=== PATIENT | female | born 1980 | race Caucasian/White ===

== ENCOUNTER 2016-10-26 09:25 | Inpatient (IN) | payer OTHER ==
--- NOTE | 2016-10-26 09:59 | ER Document Report ---
ED General - General Chief Complaint: High Blood Pressure Stated Complaint: High blood sugar Time seen by provider: 09:56 Mode of Arrival: Ambulatory Information source: Patient Notes: 36-year-old female reports he ran out of insulin 2 days ago and doesn't have money for more. He also reports a one-week history of intermittent fever chills with temperatures high as 102 yesterday. She reports nausea epigastric pain and intermittent vomiting for 2 days. She reports acid reflux symptoms today. He also has diffuse headache today which she says is typical for what she gets with DKA. Physical Exam: General: Alert, appears well. HEENT: Normocephalic. Atraumatic. PERRLA. Extraocular movements intact. Oropharynx clear. Panic membranes and canals clear no sinus tenderness to palpation Neck: Supple. Non-tender. No JVD no nuchal rigidity Respiratory: No respiratory distress. Clear and equal breath sounds bilaterally. Cardiovascular: Regular rate and rhythm. Abdominal: Normal Inspection. Soft, non-tender. No distension. Normal Bowel Sounds. Back: Non-tender. No deformity or step off. Extremities: Moves all four extremities. Splint in place to right upper extremity. He has brisk cap refill good range of motion all fingers. Elbow and shoulder are nontender. Other tremors walk 2 + pulses. She has scattered areas of eschar consistent with recent infections Neurological: Answers questions appropriately mentation clear Psychological: Normal affect. Normal Mood. Skin: Warm. Dry. Normal color. TRAVEL OUTSIDE OF THE [place] IN LAST 30 DAYS: No - Related Data Allergies/Adverse Reactions: levofloxacin [From Levaquin] Allergy (Verified 10/26/16 09:37) Past Medical History - Social History Smoking Status: Former Smoker Chew tobacco use (# tins/day): No Frequency of alcohol use: None Drug Abuse: None Family History: DM, Hypertension Patient has suicidal ideation: No Patient has homicidal ideation: No Endocrine Medical History: Reports: Hx Diabetes Mellitus Type 1 Renal/ Medical History: Denies: Hx Peritoneal Dialysis - Immunizations Hx Diphtheria, Pertussis, Tetanus Vaccination: Yes Review of Systems - Review of Systems Constitutional: See HPI EENT: denies: Ear pain, Throat pain Cardiovascular: denies: Edema Respiratory: Cough Gastrointestinal: denies: Abdominal pain Genitourinary: denies: Burning, Dysuria Musculoskeletal: denies: Back pain Hematologic/Lymphatic: denies: Swollen glands Neurological/Psychological: denies: Weakness, Numbness Physical Exam - Vital signs Vitals: Temp Pulse Resp BP 97.5 F 79 22 H 123/74 10/26/16 09:33 10/26/16 09:33 10/26/16 09:33 10/26/16 09:33 Course - Re-evaluation Re-evalutation: 10/26/16 12:07 Patient has laboratory findings consistent with DKA and has been started on IV insulin and IV fluids. Dr. Neil accepts patient for the hospitalist service. Patient reports fever at home but has no white count or left shift now - Vital Signs Vital signs: Temp Pulse Resp BP Pulse Ox 97.5 F 80 18 123/74 100 10/26/16 09:36 10/26/16 09:36 10/26/16 10:00 10/26/16 09:36 10/26/16 09:36 - Laboratory Result Diagrams: 10/26/16 10:05 10/26/16 10:05 Laboratory results interpreted by me: 10/26/16 10/26/16 10/26/16 10:05 10:05 10:05 MCHC 31.5 L Carbonic Acid ABG pH ABG pCO2 ABG HCO3 ABG Total CO2 Sodium 128.3 L Chloride 91 L Carbon Dioxide 14 L Anion Gap 23 H BUN 24 H Glucose 674 H* POC Glucose Alkaline Phosphatase 130 H Urine Glucose (UA) >=500 H Urine Ketones 80 H 10/26/16 10/26/16 11:04 11:49 MCHC Carbonic Acid 0.95 L ABG pH 7.27 L ABG pCO2 31.5 L ABG HCO3 14.0 L ABG Total CO2 14.9 L Sodium Chloride Carbon Dioxide Anion Gap BUN Glucose POC Glucose > 550 H* Alkaline Phosphatase Urine Glucose (UA) Urine Ketones - Diagnostic Test Radiology reviewed: Image reviewed, Reports reviewed Discharge - Discharge Clinical Impression: Diabetic ketoacidosis Qualifiers: Diabetes mellitus type: type 1 Diabetes mellitus complication detail: without coma Qualified Code(s): E10.10 - Type 1 diabetes mellitus with ketoacidosis without coma Condition: Serious Disposition: ADMITTED INPATIENT Admitting Provider: Hospitalist Unit Admitted: [facility]
[2016-10-26] MEDS: NORMAL SALINE 1000 ML 1,000 ML IV PRN ×3 (10:15→19:17)
[2016-10-26 10:40] LABS: APPEARANCE,URINE CLEAR; BILIRUBIN,URINE NEGATIVE (NEGATIVE); GLUCOSE, URINE >=500 mg/dL (NEGATIVE); KETONES,URINE 80 mg/dL (NEGATIVE); LEUKOCYTE ESTERASE,URINE NEGATIVE (NEGATIVE); NITRITE,URINE NEGATIVE (NEGATIVE); PROTEIN,URINE NEGATIVE (NEGATIVE); URINE SPECIFIC GRAVITY 1.026; UROBILINOGEN,URINE NEGATIVE mg/dL (<2.0)
[2016-10-26 10:42] LABS: ABSOLUTE BASOPHILS # (AUTO) 0.1 10^3/uL (0.0-0.2); ABSOLUTE EOSINOPHILS # (AUTO) 0.3 10^3/uL (0.0-0.6); ABSOLUTE LYMPHOCYTES (AUTO) 2.1 10^3/uL (0.5-4.7); ABSOLUTE MONOCYTES (AUTO) 0.2 10^3/uL (0.1-1.4); ABSOLUTE NEUT (AUTO) 3.3 10^3/uL (1.7-8.2); BASOPHILS % (AUTO) 1.5 % (0-2); EOSINOPHILS % (AUTO) 4.9 % (0-6); HEMATOCRIT 39.6 % (36.0-47.0); HEMOGLOBIN 12.5 g/dL (12.0-15.5); HGB HCT DIFFERENCE -2.1; LYMPHOCYTES % (AUTO) 34.8 % (13-45); MEAN CORPUSCULAR HGB CONC 31.5 g/dL (32.0-36.0); MEAN CORPUSCULAR VOLUME 89 fl (80-97); MONOCYTES % (AUTO) 4.1 % (3-13); RED BLOOD COUNT 4.46 10^6/uL (3.72-5.28); RED CELL DISTRIBUTION WIDTH 13.6 % (11.5-14.0); SEGMENTED NEUTROPHILS % (AUTO) 54.7 % (42-78); WHITE BLOOD COUNT 6.1 10^3/uL (4.0-10.5)
[2016-10-26] MEDS ORDERED: INSULIN REG, HUMAN 100 UNIT/ML 3 ML VIAL (PYX) IV ONE ×2 (10:57→11:37)
[2016-10-26 11:11] LABS: ALANINE AMINOTRANSFERASE 49 U/L (9-52); ALBUMIN 4.2 g/dL (3.5-5.0); ALKALINE PHOSPHATASE 130 U/L (38-126); ASPARTATE AMINO TRANSFERASE 20 U/L (14-36); BILIRUBIN,TOTAL 0.6 mg/dL (0.2-1.3); BLOOD UREA NITROGEN 24 mg/dL (7-20); CALCIUM 9.4 mg/dL (8.4-10.2); CARBON DIOXIDE 14 mmol/L (22-30); CHLORIDE 91 mmol/L (98-107); CREATININE RESULT 0.86 mg/dL (0.52-1.25); POTASSIUM 4.7 mmol/L (3.6-5.0); SODIUM 128.3 mmol/L (137-145); TOTAL PROTEIN 7.8 g/dL (6.3-8.2)
[2016-10-26 11:25] LABS: ANION GAP 23 (5-19); GLUCOSE 674 mg/dL (75-110)
[2016-10-26 11:30] LABS: ARTERIAL BLOOD BASE EXCESS -11.8 mmol/L; ARTERIAL BLOOD O2 SATURATION 96.7 % (94-98)
[2016-10-26] MEDS ORDERED: ONDANSETRON HCL INJ/PF 4 MG/2 ML SDV IV ONE (12:15)
[2016-10-26] MEDS ORDERED: ACETAMINOPHEN 325 MG TABLET PO PRN (12:38)
[2016-10-26] MEDS ORDERED: ONDANSETRON HCL INJ/PF 4 MG/2 ML SDV IV PRN (12:38)
[2016-10-26] MEDS ORDERED: NORMAL SALINE 100 ML with INSULIN REGULAR, HUMAN 100 UNIT IV PRN ×2 (12:42)
[2016-10-26] MEDS ORDERED: DEXTROSE 50%-WATER 25 GM/50 ML DISP.SYRIN IV PRN ×4 (12:42→20:19)
[2016-10-26] MEDS ORDERED: GLUCAGON,HUMAN RECOMB 1 MG INJ IM PRN ×2 (12:42→20:19)
[2016-10-26] MEDS ORDERED: DEXTROSE 40% GEL 15 GM TUBE PO PRN ×4 (12:42→20:19)
[2016-10-26] MEDS ORDERED: CYCLOBENZAPRINE HCL 10 MG TABLET PO PRN (12:43)
--- NOTE | 2016-10-26 13:38 | PDOC H&P ---
History of Present Illness Admission Date/PCP: 10/26/2016. No primary care doctor Patient complains of: Does not taken my insulin for the last 3 days. History of Present Illness: NEMESIO ELIAS is a 36 year old female who has a long history of diabetes mellitus type I who presents with nausea vomiting and elevated blood sugars. The patient reports that she has had some crampy abdominal pain along with some substernal chest pain associated with vomiting. Patient's children had a gastroenteritis. She also reports having some low-grade fevers and chills. She also is had some diarrhea with this. She presented her blood sugars were greater than 500 was found to be in DKA. Patient reports she's been unable to follow her insulin has been without insulin for the last 2 or 3 days. Patient has a history of IV drug abuse reports she's been clean for the last 3 months. She denies any dysuria. She denies any cough or sputum. She does have chest pain that occurred after vomiting. She currently is chest pain-free. Past Medical History Cardiac Medical History: Reports: None Pulmonary Medical History: Reports: None EENT Medical History: Reports: None Neurological Medical History: Reports: None Endocrine Medical History: Reports: Diabetes Mellitus Type 1 Renal/ Medical History: Reports: None Malignancy Medical History: Reports: None GI Medical History: Reports: Gastroesophageal Reflux Disease Musculoskeltal Medical History: Reports: None Psychiatric Medical History: Reports: Bipolar Disorder Traumatic Medical History: Reports: Other - Right hand fracture currently in a cast. Hematology: Reports: None Infectious Medical History: Reports: None Past Surgical History Past Surgical History: Reports: Section, Cholecystectomy, Orthopedic Surgery - right wrist Social History Information Source: Patient Lives with: Family Smoking Status: Former Smoker Frequency of Alcohol Use: None Hx Recreational Drug Use: Yes Drugs: Heroin - None for 3 months. Hx Prescription Drug Abuse: No - Advance Directive Resuscitation Status: Full Code Family History Family History: DM, Hypertension Family History: Mother's in her 50s. Her health history is unknown. Father 61 alive and healthy. Parental Family History Reviewed: Yes Children Family History Reviewed: No Sibling(s) Family History Reviewed.: No Medication/Allergy Allergies/Adverse Reactions: levofloxacin [From Levaquin] Allergy (Verified 10/26/16 09:37) Review of Systems Constitutional: PRESENT: chills, fever(s) Eyes: ABSENT: visual disturbances Ears: ABSENT: hearing changes Cardiovascular: PRESENT: chest pain - This occurred after vomiting. Substernal and does not radiate. Respiratory: ABSENT: cough, hemoptysis Gastrointestinal: PRESENT: diarrhea, heartburn, nausea, vomiting Genitourinary: ABSENT: dysuria, hematuria Musculoskeletal: PRESENT: other - Left neck pain Integumentary: ABSENT: rash, wounds Neurological: ABSENT: abnormal gait, abnormal speech, confusion, dizziness, focal weakness, syncope Psychiatric: PRESENT: other - Has a history of bipolar disorder currently under control.. ABSENT: anxiety, depression, homidical ideation, suicidal ideation Endocrine: PRESENT: polydipsia, polyuria Hematologic/Lymphatic: ABSENT: easy bleeding, easy bruising Physical Exam Vital Signs: Temp Pulse Resp BP Pulse Ox 97.5 F 80 18 123/74 100 10/26/16 09:36 10/26/16 09:36 10/26/16 10:00 10/26/16 09:36 10/26/16 09:36 Intake & Output 10/25/16 10/26/16 10/27/16 06:59 06:59 06:59 Weight 79.9 kg General appearance: PRESENT: no acute distress, well-developed, well-nourished Eye exam: PRESENT: conjunctiva pink, EOMI, PERRLA. ABSENT: scleral icterus Ear exam: PRESENT: normal external ear exam Mouth exam: PRESENT: moist, tongue midline Neck exam: ABSENT: carotid bruit, JVD, lymphadenopathy, thyromegaly Respiratory exam: PRESENT: clear to auscultation tiffanie. ABSENT: rales, rhonchi, wheezes Cardiovascular exam: PRESENT: RRR. ABSENT: diastolic murmur, rubs, systolic murmur Pulses: PRESENT: normal dorsalis pedis pul GI/Abdominal exam: PRESENT: normal bowel sounds, soft. ABSENT: distended, guarding, mass, organolmegaly, rebound, tenderness Rectal exam: PRESENT: deferred Extremities exam: PRESENT: full ROM, other - Right forearm is in a cast. ABSENT : calf tenderness, clubbing, pedal edema Neurological exam: PRESENT: alert, awake, oriented to person, oriented to place , oriented to time, oriented to situation, CN II-XII grossly intact. ABSENT: motor sensory deficit Psychiatric exam: PRESENT: appropriate affect Skin exam: PRESENT: other - Multiple old needle tracks from history of IV drug abuse Results Laboratory Results: 10/26/16 10:05 10/26/16 10:05 10/26/16 10/26/16 10/26/16 10:05 10:05 10:05 WBC 6.1 RBC 4.46 Hgb 12.5 Hct 39.6 MCV 89 MCH 28.0 MCHC 31.5 L RDW 13.6 Plt Count 299 Seg Neutrophils % 54.7 Lymphocytes % 34.8 Monocytes % 4.1 Eosinophils % 4.9 Basophils % 1.5 Absolute Neutrophils 3.3 Absolute Lymphocytes 2.1 Absolute Monocytes 0.2 Absolute Eosinophils 0.3 Absolute Basophils 0.1 Carbonic Acid HCO3/H2CO3 Ratio ABG pH ABG pCO2 ABG pO2 ABG HCO3 ABG O2 Saturation ABG Base Excess FiO2 Sodium 128.3 L Potassium 4.7 Chloride 91 L Carbon Dioxide 14 L Anion Gap 23 H BUN 24 H Creatinine 0.86 Est GFR ( Amer) > 60 Est GFR (Non-Af Amer) > 60 Glucose 674 H* Calcium 9.4 Total Bilirubin 0.6 AST 20 ALT 49 Alkaline Phosphatase 130 H Total Protein 7.8 Albumin 4.2 Urine Color STRAW Urine Appearance CLEAR Urine pH 5.0 Ur Specific [place] 1.026 Urine Protein NEGATIVE Urine Glucose (UA) >=500 H Urine Ketones 80 H Urine Blood NEGATIVE Urine Nitrite NEGATIVE Ur Leukocyte Esterase NEGATIVE Urine WBC (Auto) 1 10/26/16 11:04 WBC RBC Hgb Hct MCV MCH MCHC RDW Plt Count Seg Neutrophils % Lymphocytes % Monocytes % Eosinophils % Basophils % Absolute Neutrophils Absolute Lymphocytes Absolute Monocytes Absolute Eosinophils Absolute Basophils Carbonic Acid 0.95 L HCO3/H2CO3 Ratio 14:1 ABG pH 7.27 L ABG pCO2 31.5 L ABG pO2 97.9 ABG HCO3 14.0 L ABG O2 Saturation 96.7 ABG Base Excess -11.8 FiO2 ROOM AIR Sodium Potassium Chloride Carbon Dioxide Anion Gap BUN Creatinine Est GFR ( Amer) Est GFR (Non-Af Amer) Glucose Calcium Total Bilirubin AST ALT Alkaline Phosphatase Total Protein Albumin Urine Color Urine Appearance Urine pH Ur Specific [place] Urine Protein Urine Glucose (UA) Urine Ketones Urine Blood Urine Nitrite Ur Leukocyte Esterase Urine WBC (Auto) Impressions: Chest X-Ray 10/26/16 09:55 IMPRESSION: NO ACUTE RADIOGRAPHIC FINDING IN THE CHEST. Assessment & Plan - Diagnosis (1) DKA (diabetic ketoacidoses) Qualifiers: Diabetes mellitus type: type 1 Diabetes mellitus complication detail: without coma Qualified Code(s): E10.10 - Type 1 diabetes mellitus with ketoacidosis without coma Is this a current diagnosis for this admission?: YesPlan: The patient has what appears to be a gastroenteritis along with her inability to pay for her insulin which is caused her to have DKA. We will give IV fluids as well as IV insulin. Will convert back over 2 7030 when she is corrected. She was recently using 70/30 at 30 units daily. We'll start her on 15 units twice a day once her DKA resolved. Patient does not have any evidence for an acute bacterial infection. (2) Bipolar 1 disorder, mixed Is this a current diagnosis for this admission?: YesPlan: Patiently is currently controlled without medications. (3) IV drug abuse Is this a current diagnosis for this admission?: YesPlan: Patient reports that she's been off of IV drugs since getting out of senior care in July. We will check an HIV as well as RPR her today. Check urine drug screen. - Time Time Spent: 50 to 70 Minutes - Inpatient Certification Medical Necessity: Need For IV Fluids
[2016-10-26 14:05] LABS: URINE BARBITURATES SCREEN NEGATIVE; URINE METHADONE SCREEN NEGATIVE; URINE PHENCYCLIDINE SCREEN NEGATIVE
[2016-10-26 14:51] LABS: ANION GAP 17 (5-19); BLOOD UREA NITROGEN 21 mg/dL (7-20); CALCIUM 9.1 mg/dL (8.4-10.2); CARBON DIOXIDE 18 mmol/L (22-30); CHLORIDE 104 mmol/L (98-107); CREATININE RESULT 0.68 mg/dL (0.52-1.25); GLUCOSE 251 mg/dL (75-110); POTASSIUM 4.3 mmol/L (3.6-5.0); SODIUM 139.3 mmol/L (137-145)
[2016-10-26] MEDS ORDERED: INFLUENZA ADLT QUAD (36MOS+) 2016-17 VAC 0.5 ML SYR IM PRN (15:20)
[2016-10-26 18:51] LABS: ANION GAP 10 (5-19); BLOOD UREA NITROGEN 19 mg/dL (7-20); CALCIUM 8.7 mg/dL (8.4-10.2); CARBON DIOXIDE 24 mmol/L (22-30); CHLORIDE 106 mmol/L (98-107); CREATININE RESULT 1.05 mg/dL (0.52-1.25); GLUCOSE 191 mg/dL (75-110); POTASSIUM 4.1 mmol/L (3.6-5.0); SODIUM 139.6 mmol/L (137-145)
[2016-10-26] MEDS: HUM INSULIN NPH/REG INSULIN HM 100 UNIT/1 ML 3 ML SUBCUT SCH (19:17)
[2016-10-26] MEDS ORDERED: INSULIN LISPRO 100 UNIT/ML 3 ML VIAL SUBCUT PRN (20:19)
[2016-10-26] MEDS: FAMOTIDINE 20 MG TABLET PO SCH (21:19)
[2016-10-27] MEDS: NORMAL SALINE 1000 ML 1,000 ML IV PRN ×2 (00:57→06:48)
[2016-10-27 05:44] LABS: HEMATOCRIT 34.2 % (36.0-47.0); HGB HCT DIFFERENCE -1.2; MEAN CORPUSCULAR HEMOGLOBIN 27.6 pg (27.0-33.4); MEAN CORPUSCULAR HGB CONC 32.2 g/dL (32.0-36.0); RED BLOOD COUNT 3.99 10^6/uL (3.72-5.28); RED CELL DISTRIBUTION WIDTH 13.4 % (11.5-14.0)
[2016-10-27 05:48] LABS: MEAN CORPUSCULAR VOLUME 86 fl (80-97)
[2016-10-27 06:01] LABS: ANION GAP 13 (5-19); BLOOD UREA NITROGEN 16 mg/dL (7-20); CALCIUM 8.8 mg/dL (8.4-10.2); CARBON DIOXIDE 18 mmol/L (22-30); CHLORIDE 112 mmol/L (98-107); CREATININE RESULT 0.64 mg/dL (0.52-1.25); GLUCOSE 107 mg/dL (75-110); POTASSIUM 4.1 mmol/L (3.6-5.0); SODIUM 142.7 mmol/L (137-145)
[2016-10-27] MEDS: HUM INSULIN NPH/REG INSULIN HM 100 UNIT/1 ML 3 ML SUBCUT SCH (08:00)
[2016-10-27] MEDS: FAMOTIDINE 20 MG TABLET PO SCH (09:16)
--- NOTE | 2016-10-27 11:17 | PDOC DISCHARGE SUMMARY ---
General - Admit/Disc Date/PCP Admission Date/Primary Care Provider: 10/26/16 12:38 Discharge Date: 10/27/16 - Discharge Diagnosis (1) DKA (diabetic ketoacidoses) Is this a current diagnosis for this admission?: Yes (2) Bipolar 1 disorder, mixed Is this a current diagnosis for this admission?: Yes (3) IV drug abuse Is this a current diagnosis for this admission?: Yes - Additional Information Resuscitation Status: Full Code Discharge Diet: Diabetic Discharge Activity: Activity As Tolerated Home Medications: Cyclobenzaprine HCl [Flexeril 10 mg Tablet] 10 mg PO Q8HP PRN #30 tablet Hum Insulin NPH/Reg Insulin Hm [Insulin 70-30 (NPH/Reg) 100 unit/mL] 15 unit SUBCUT Q12@0800,1999 #1 pkg 10/27/16 History of Present Illness History of Present Illness: NEMESIO ELIAS is a 36 year old female who has a long history of diabetes mellitus type I who presents with nausea vomiting and elevated blood sugars. The patient reports that she has had some crampy abdominal pain along with some substernal chest pain associated with vomiting. Patient's children had a gastroenteritis. She also reports having some low-grade fevers and chills. She also is had some diarrhea with this. She presented her blood sugars were greater than 500 was found to be in DKA. Patient reports she's been unable to follow her insulin has been without insulin for the last 2 or 3 days. Patient has a history of IV drug abuse reports she's been clean for the last 3 months. She denies any dysuria. She denies any cough or sputum. She does have chest pain that occurred after vomiting. She currently is chest pain-free. Hospital Course Hospital Course: Patient presented with DKA most likely secondary to viral gastroenteritis. Patient was started on IV fluids and IV insulin drip. Patient had quick resolution of her DKA and she was started back on 7030. Patient previously been taking 30 units once daily and we switched her to 15 units twice a day. The patient was tolerating by mouth well and had no evidence for any type of bacterial infection. The patient is discharged home and [facility]. Physical Exam Vital Signs: Temp Pulse Resp BP Pulse Ox 97.3 F 64 16 102/58 L 98 10/27/16 07:22 10/27/16 07:22 10/27/16 07:22 10/27/16 07:22 10/27/16 07:22 Intake & Output 10/26/16 10/27/16 10/28/16 06:59 06:59 06:59 Intake Total 2970 Output Total 800 Balance 2170 Weight 81.4 kg General appearance: PRESENT: no acute distress Eye exam: PRESENT: conjunctiva pink Mouth exam: PRESENT: moist, tongue midline Neck exam: ABSENT: JVD Respiratory exam: PRESENT: clear to auscultation tiffanie. ABSENT: rales, rhonchi, wheezes Cardiovascular exam: PRESENT: RRR. ABSENT: diastolic murmur, rubs, systolic murmur GI/Abdominal exam: PRESENT: normal bowel sounds, soft. ABSENT: distended, guarding, mass, organolmegaly, rebound, tenderness Extremities exam: ABSENT: calf tenderness, clubbing, pedal edema Neurological exam: PRESENT: alert, awake, oriented to person, oriented to place , oriented to time, oriented to situation Results Laboratory Results: 10/27/16 04:09 10/27/16 04:09 10/26/16 10/26/16 10/27/16 14:06 18:17 04:09 WBC 5.0 RBC 3.99 Hgb 11.0 L Hct 34.2 L MCV 86 MCH 27.6 MCHC 32.2 RDW 13.4 Plt Count 223 Sodium 139.3 139.6 Potassium 4.3 4.1 Chloride 104 106 Carbon Dioxide 18 L 24 Anion Gap 17 10 BUN 21 H 19 Creatinine 0.68 1.05 Est GFR ( Amer) > 60 > 60 Est GFR (Non-Af Amer) > 60 > 60 Glucose 251 H 191 H Calcium 9.1 8.7 10/27/16 04:09 WBC RBC Hgb Hct MCV MCH MCHC RDW Plt Count Sodium 142.7 Potassium 4.1 Chloride 112 H Carbon Dioxide 18 L Anion Gap 13 BUN 16 Creatinine 0.64 Est GFR ( Amer) > 60 Est GFR (Non-Af Amer) > 60 Glucose 107 Calcium 8.8 10/26/16 15:57 Nasophary (Mrsa Only) MRSA Surveillance Culture - Final NO MRSA RECOVERED Impressions: Chest X-Ray 10/26/16 09:55 IMPRESSION: NO ACUTE RADIOGRAPHIC FINDING IN THE CHEST. Qualifiers PATEINT BEING DISCHARGED WITH ANY OF THE FOLLOWING DIAGNOSIS?: No Plan Discharge Plan: Patient is discharged home. She [facility]. Time Spent: Less than 30 Minutes
[2016-10-27] MEDS ORDERED: INSULIN GLARGINE,HUM.REC.ANLOG 1,000 UNIT/10 ML UNIT SUBCUT ONE (13:30)
[2016-10-27 13:34] VITALS: BP 106/54
[2016-10-27] MEDS ORDERED: INSULIN GLARGINE,HUM.REC.ANLOG 300 UNIT/3 ML INSULN.PEN SUBCUT ONE ×2 (14:30)
[2016-10-28] MEDS ORDERED: INSULIN GLARGINE,HUM.REC.ANLOG 300 UNIT/3 ML INSULN.PEN SUBCUT SCH (10:00)
== END 2016-10-27 15:19 | disposition home or self-care (01) | DRG 639 ==
LOC: ER 09:25 → EH 12:38 → UNDOADMIN 12:55 → 3N 14:56
PROVIDERS: ADMIT Family Medicine; ATTEND Family Medicine
PROC: 3E0234Z Introduction of Serum, Toxoid and Vaccine into Muscle, Percutaneous Approach (ICD-10-PCS; principal; 2016-10-27)
DX: E13.10 Other specified diabetes mellitus with ketoacidosis without coma (principal); A08.4 Viral intestinal infection, unspecified; K21.9 Gastro-esophageal reflux disease without esophagitis; F31.9 Bipolar disorder, unspecified; Z59.8 Other problems related to housing and economic circumstances; Z79.4 Long term (current) use of insulin; Z23 Encounter for immunization
CPT/HCPCS: 36415; 36600; 71010; 80048; 80053; 80307; 81001; 81025; 82803; 82962; 85025; 85027; 86592; 86701; 87086; 90686; 96360; 96361; 99284; J1815; J2405; J7030

== ENCOUNTER 2016-11-12 22:35 | Emergency (ER) | payer OTHER ==
--- NOTE | 2016-11-12 23:03 | ER Document Report ---
ED Medical Screen (RME) - General Chief Complaint: Shoulder Pain Stated Complaint: SHOULDER INJURY Time seen by provider: 23:02 Mode of Arrival: Ambulatory Information source: Patient Notes: 36-year-old female presents to ED for left neck shoulder and arm pain since yesterday. She states she was moving furniture when her pain started in her neck right radiating across her shoulder and down her arm to her hand. Asthma superior descending the 2015. History of diabetes insulin-dependent. Patient states she's already had Tylenol and aspirin today and does not want Tylenol or Motrin in the ER. I have greeted and performed a rapid initial assessment of this patient. A comprehensive ED assessment and evaluation of the patient, analysis of test results and completion of medical decision making process will be conducted by an additional ED providers. TRAVEL OUTSIDE OF THE [place] IN LAST 30 DAYS: No - Related Data Allergies/Adverse Reactions: levofloxacin [From Levaquin] Allergy (Verified 10/26/16 09:37) Past Medical History Endocrine Medical History: Reports: Hx Diabetes Mellitus Type 1 Renal/ Medical History: Denies: Hx Peritoneal Dialysis GI Medical History: Reports: Hx Gastroesophageal Reflux Disease Psychiatric Medical History: Reports: Hx Bipolar Disorder, Hx Depression Past Surgical History: Reports: Hx Section, Hx Cholecystectomy, Hx Orthopedic Surgery - right wrist - Immunizations Hx Diphtheria, Pertussis, Tetanus Vaccination: Yes Physical Exam - Vital signs Vitals: Temp Pulse Resp BP Pulse Ox 98.0 F 92 16 135/83 H 98 11/12/16 22:39 11/12/16 22:39 11/12/16 22:39 11/12/16 22:39 11/12/16 22:39 Course - Vital Signs Vital signs: Temp Pulse Resp BP Pulse Ox 98.0 F 92 16 135/83 H 98 11/12/16 22:39 11/12/16 22:39 11/12/16 22:39 11/12/16 22:39 11/12/16 22:39
[2016-11-13] MEDS ORDERED: KETOROLAC TROMETHAMINE 60 MG/2 ML SDV IM ONE (02:32)
[2016-11-13] MEDS ORDERED: CYCLOBENZAPRINE HCL 10 MG TABLET PO ONE (02:32)
--- NOTE | 2016-11-13 02:33 | ER Document Report ---
ED General - General Chief Complaint: Neck Pain < 24hrs old Stated Complaint: SHOULDER INJURY Mode of Arrival: Ambulatory Notes: Patient is a 36-year-old female who presents with complaint of neck and shoulder pain on left side. Patient says she has been the radiates from behind her mastoid process down her trapezius muscle cross into the left shoulder. She says that the areas are becoming sore on when she was lifting and helping move heavy furniture. Throughout the day Tuesday continued and now it hurts for her to turn her head or to shrug her shoulder on the left side. No numbness. No weakness in his left hand. No other complaints at this time. No trauma to the neck. TRAVEL OUTSIDE OF THE [place] IN LAST 30 DAYS: No - Related Data Allergies/Adverse Reactions: levofloxacin [From Levaquin] Allergy (Verified 10/26/16 09:37) Past Medical History - General Information source: Patient - Social History Smoking Status: Never Smoker Chew tobacco use (# tins/day): No Frequency of alcohol use: None Drug Abuse: None Family History: DM, Hypertension Patient has suicidal ideation: No Patient has homicidal ideation: No Endocrine Medical History: Reports: Hx Diabetes Mellitus Type 1 Renal/ Medical History: Denies: Hx Peritoneal Dialysis GI Medical History: Reports: Hx Gastroesophageal Reflux Disease Psychiatric Medical History: Reports: Hx Bipolar Disorder, Hx Depression Past Surgical History: Reports: Hx Section, Hx Cholecystectomy, Hx Orthopedic Surgery - right wrist - Immunizations Hx Diphtheria, Pertussis, Tetanus Vaccination: Yes Hx Pneumococcal Vaccination: 11/10/15 Review of Systems - Review of Systems Notes: My Normal Review Basic REVIEW OF SYSTEMS: CONSTITUTIONAL : Denies fever, chills, or sweats. Denies recent illness. MUSCULOSKELETAL: Pain over left trapezius muscle. SKIN: Denies rash or skin lesions. HEMATOLOGIC : Denies easy bruising or bleeding. NEUROLOGICAL: Denies altered mental status or loss of consciousness. Denies headache. Denies weakness or paralysis or loss of use of either side. Denies problems with gait or speech. Denies sensory or motor loss. ALL OTHER SYSTEMS REVIEWED AND NEGATIVE. Physical Exam - Vital signs Vitals: Temp Pulse Resp BP Pulse Ox 98.0 F 92 16 135/83 H 98 11/12/16 22:39 11/12/16 22:39 11/12/16 22:39 11/12/16 22:39 11/12/16 22:39 - Notes Notes: General Appearance: Well nourished, alert, cooperative, no acute distress, moderate obvious discomfort. Vitals: reviewed, See vital signs table. Head: no swelling or tenderness to the head Eyes: PERRL, EOMI, Conjuctiva clear Mouth: No decreasd moisture Throat: No tonsillar inflammation, No airway obstruction, No lymphadenopathy Neck: Supple, no midline neck tenderness. Patient has some stiffness to the trapezius muscle and the left side. No significant tenderness to palpation. Pain is worse when the patient goes to flex her her head down. Extremities: strength 5/5 in all extremities, good pulses in all extremities, no swelling or tenderness in the extremities, no edema. Normal movement of fingers of the left hand. Skin: warm, dry, appropriate color, no rash Neuro: speech clear, oriented x 3, normal affect, responds appropriately to questions. Distal sensation intact. Course - Vital Signs Vital signs: Temp Pulse Resp BP Pulse Ox 98.0 F 92 16 135/83 H 98 11/12/16 22:39 11/12/16 22:39 11/12/16 22:39 11/12/16 22:39 11/12/16 22:39 - Transfer of Care Notes: 11/13/16 02:30 Dictation of this chart was performed using voice recognition software; therefore, there may be some unintended grammatical errors. 11/13/16 02:31 Discharge - Discharge Clinical Impression: Trapezius muscle spasm Cervical strain Qualifiers: Encounter type: initial encounter Qualified Code(s): S16.1XXA - Strain of muscle, fascia and tendon at neck level, initial encounter Condition: Good Disposition: HOME, SELF-CARE Additional Instructions: Patient has what appears to be a trapezius muscle spasm. She will be placed on anti-spasmodic medications. She's encouraged follow up with her doctor. She's encouraged return to ER shows worsening pain, hand weakness, or feels unwell. Patient agrees with plan and will be discharged home. Dictation of this chart was performed using voice recognition software; therefore, there may be some unintended grammatical errors. Prescriptions: Metaxalone [Skelaxin 800 mg Tablet] 800 mg PO ASDIR PRN #20 tablet PRN Reason: Forms: Return to Work
[2016-11-13 02:48] VITALS: BP 130/85
== END 2016-11-13 02:48 | disposition home or self-care (01) ==
LOC: ER 22:35
DX: S16.1XXA Strain of muscle, fascia and tendon at neck level, initial encounter (principal); M62.830 Muscle spasm of back; M54.2 Cervicalgia; X50.0XXA Overexertion from strenuous movement or load, initial encounter
CPT/HCPCS: 99283; 96372; 72050; 73030; J1885

== ENCOUNTER 2016-12-05 19:27 | Emergency (ER) | payer OTHER ==
--- NOTE | 2016-12-05 19:48 | ER Document Report ---
ED Medical Screen (RME) - General Stated Complaint: FALL/RIGHT HAND,WRIST PAIN, SWELLING Time seen by provider: 19:46 Mode of Arrival: Ambulatory Information source: Patient Notes: 36-year-old female presents to ED for pain in her right wrist hand and pinky finger. States she fell catching herself with her hand. The wrist is swollen. Last menstrual period 11/25/2016 I have greeted and performed a rapid initial assessment of this patient. A comprehensive ED assessment and evaluation of the patient, analysis of test results and completion of medical decision making process will be conducted by an additional ED providers. TRAVEL OUTSIDE OF THE [place] IN LAST 30 DAYS: No - Related Data Allergies/Adverse Reactions: levofloxacin [From Levaquin] Allergy (Verified 12/05/16 19:45) Past Medical History Endocrine Medical History: Reports: Hx Diabetes Mellitus Type 1 Renal/ Medical History: Denies: Hx Peritoneal Dialysis GI Medical History: Reports: Hx Gastroesophageal Reflux Disease Psychiatric Medical History: Reports: Hx Bipolar Disorder, Hx Depression Past Surgical History: Reports: Hx Section, Hx Cholecystectomy, Hx Orthopedic Surgery - right wrist - Immunizations Hx Diphtheria, Pertussis, Tetanus Vaccination: Yes Physical Exam - Vital signs Vitals: Temp Pulse Resp BP Pulse Ox 97.6 F 71 16 142/85 H 100 12/05/16 19:35 12/05/16 19:35 12/05/16 19:35 12/05/16 19:35 12/05/16 19:35 Course - Vital Signs Vital signs: Temp Pulse Resp BP Pulse Ox 97.6 F 71 16 142/85 H 100 12/05/16 19:35 12/05/16 19:35 12/05/16 19:35 12/05/16 19:35 12/05/16 19:35
[2016-12-05 22:25] VITALS: BP 131/88
--- NOTE | 2016-12-05 22:31 | ER Document Report ---
ED Fall - General Chief Complaint: Fall Stated Complaint: FALL/RIGHT HAND,WRIST PAIN, SWELLING Mode of Arrival: Ambulatory Information source: Patient Notes: 36-year-old female presents to the emergency department complaining of right wrist and hand pain status post mechanical fall. Patient reports she tripped and fell this afternoon from standing landing on the lateral aspect of the right hand and wrist. Patient reports has fractured right fifth metacarpal within the last 2 months and has follow-up appointment with orthopedics tomorrow for that. Reports pain to hand and wrist is worse with movement but denies numbness or tingling. TRAVEL OUTSIDE OF THE [place] IN LAST 30 DAYS: No - HPI Occurred: This afternoon Where: Indoors Context: Tripped, Fell from standing Associated symptoms: None Location of injury/pain: Hand, Wrist Quality of pain: Achy Severity: Moderate Pain Level: 3 - Related data Allergies/Adverse Reactions: levofloxacin [From Levaquin] Allergy (Verified 12/05/16 19:45) Past Medical History - General Information source: Patient - Social History Smoking Status: Former Smoker Chew tobacco use (# tins/day): No Frequency of alcohol use: None Drug Abuse: None Lives with: Family Family History: DM, Hypertension Patient has suicidal ideation: No Patient has homicidal ideation: No Endocrine Medical History: Reports: Hx Diabetes Mellitus Type 1 Renal/ Medical History: Denies: Hx Peritoneal Dialysis GI Medical History: Reports: Hx Gastroesophageal Reflux Disease Psychiatric Medical History: Reports: Hx Bipolar Disorder, Hx Depression Past Surgical History: Reports: Hx Section, Hx Cholecystectomy, Hx Orthopedic Surgery - right wrist - Immunizations Hx Diphtheria, Pertussis, Tetanus Vaccination: Yes Hx Pneumococcal Vaccination: 11/10/15 Review of Systems - Review of Systems Constitutional: No symptoms reported EENT: No symptoms reported Cardiovascular: No symptoms reported Respiratory: No symptoms reported Gastrointestinal: No symptoms reported Genitourinary: No symptoms reported Female Genitourinary: No symptoms reported Musculoskeletal: See HPI Skin: No symptoms reported Hematologic/Lymphatic: No symptoms reported Neurological/Psychological: No symptoms reported -: Yes All other systems reviewed and negative Physical Exam - Vital signs Vitals: Temp Pulse Resp BP Pulse Ox 97.6 F 71 16 142/85 H 100 12/05/16 19:35 12/05/16 19:35 12/05/16 19:35 12/05/16 19:35 12/05/16 19:35 Interpretation: Normal - General General appearance: Appears well, Alert - HEENT Head: Normocephalic, Atraumatic Eyes: Normal Pupils: PERRL - Respiratory Respiratory status: No respiratory distress Chest status: Nontender Breath sounds: Normal Chest palpation: Normal - Cardiovascular Rhythm: Regular Heart sounds: Normal auscultation Murmur: No Pulses: Normal: Radial Normal capillary refill: Yes - Abdominal Inspection: Normal Distension: No distension Bowel sounds: Normal Tenderness: Nontender Organomegaly: No organomegaly - Back Back: Normal, Nontender - Extremities General upper extremity: Normal inspection, Nontender, Normal color, Normal ROM , Normal strength, Normal temperature. No: Tender, Edema General lower extremity: Normal inspection, Nontender, Normal color, Normal ROM , Normal strength, Normal temperature, Normal weight bearing. No: Tender, Edema Shoulder: Normal, Instability Arm: Normal, Nontender, Instability Elbow: Normal, Nontender Forearm: Normal, Nontender Wrist: Tender - Tenderness with palpation and mild localized bruising and swelling to lateral aspect of right wrist and proximal fifth metacarpal area. Full but painful range of motion. Gross motor function intact with no instability or deformity. Neurovascular function intact., Ecchymosis, Limited ROM. No: Deformity, Instability, Navicular tenderness Hand: Tender. No: Instability - Neurological Neuro grossly intact: Yes Cognition: Normal Orientation: AAOx4 [place] Coma Scale Eye Opening: Spontaneous Mary Coma Scale Verbal: Oriented Mary Coma Scale Motor: Obeys Commands [place] Coma Scale Total: 15 Speech: Normal Motor strength normal: LUE, RUE, LLE, RLE Sensory: Normal - Psychological Associated symptoms: Normal affect, Normal mood - Skin Skin Temperature: Warm Skin Moisture: Dry Skin Color: Normal Course - Re-evaluation Re-evalutation: 12/05/16 22:45 Patient hemodynamically stable, in no distress. X-ray shows old fifth metacarpal fracture with no acute osseous injury. Cock-up splint placed and patient agrees with home care, follow-up, and ED return precautions. - Vital Signs Vital signs: Temp Pulse Resp BP Pulse Ox 98.0 F 84 16 131/88 H 98 12/05/16 22:25 12/05/16 22:24 12/05/16 19:35 12/05/16 22:24 12/05/16 22:24 - Diagnostic Test Radiology reviewed: Image reviewed, Reports reviewed Procedures - Immobilization Right Wrist Time completed: 22:45 Pre-Proc Neuro Vasc Exam: Normal Immobilizer type: Cock-up Performed by: RN Post-Proc Neuro Vasc Exam: Normal Alignment checked and good: Yes Discharge - Discharge Clinical Impression: Contusion, wrist Qualifiers: Encounter type: initial encounter Laterality: right Qualified Code(s): S60.211A - Contusion of right wrist, initial encounter Wrist sprain Qualifiers: Encounter type: initial encounter Laterality: right Qualified Code(s): S63.501A - Unspecified sprain of right wrist, initial encounter Condition: Stable Disposition: HOME, SELF-CARE Instructions: Wrist Sprain ([facility]), Contusion ([facility]), Temporary Splint ([facility]), Ice & Elevation ([facility]), Anti-Inflammatory Medication ([facility]) Additional Instructions: Keep your appointment and follow-up with orthopedics tomorrow. Return to the emergency department for any worsening symptoms or concerns. Prescriptions: Naproxen [Naprosyn 375 Mg Tablet] 375 mg PO BIDP PRN #10 tablet PRN Reason: Forms: Elevated Blood Pressure, Return to Work
== END 2016-12-05 22:35 | disposition home or self-care (01) ==
LOC: ER 19:27
DX: S63.501A Unspecified sprain of right wrist, initial encounter (principal); M25.531 Pain in right wrist; M79.641 Pain in right hand; W19.XXXA Unspecified fall, initial encounter; E10.9 Type 1 diabetes mellitus without complications; Z87.81 Personal history of (healed) traumatic fracture; Z98.890 Other specified postprocedural states; Z88.1 Allergy status to other antibiotic agents; Z87.891 Personal history of nicotine dependence
CPT/HCPCS: 99283; 73130; 73110; L3984

== ENCOUNTER → 2016-12-06 | Outpatient (CLI) | payer OTHER ==
[2016-12-06 11:43] LABS: ALANINE AMINOTRANSFERASE 19 U/L (9-52); ALBUMIN 4.6 g/dL (3.5-5.0); ALKALINE PHOSPHATASE 88 U/L (38-126); ANION GAP 12 (5-19); ASPARTATE AMINO TRANSFERASE 16 U/L (14-36); BILIRUBIN,TOTAL 0.5 mg/dL (0.2-1.3); BLOOD UREA NITROGEN 18 mg/dL (7-20); CALCIUM 10.7 mg/dL (8.4-10.2); CARBON DIOXIDE 27 mmol/L (22-30); CHLORIDE 102 mmol/L (98-107); CREATININE RESULT 0.76 mg/dL (0.52-1.25); GLUCOSE 106 mg/dL (75-110); POTASSIUM 4.1 mmol/L (3.6-5.0); SODIUM 141.4 mmol/L (137-145)
[2016-12-07 10:38] LABS: HEPATITIS C VIRUS AB <0.1 s/co ratio (0.0-0.9)
== END ==
LOC: CCC 10:50
DX: E10.9 Type 1 diabetes mellitus without complications (principal)
CPT/HCPCS: 36415; 80053; 83036; 86803; 86804

== ENCOUNTER 2017-03-31 20:11 | Emergency (ER) | payer OTHER ==
--- NOTE | 2017-03-31 21:28 | ER Document Report ---
ED Medical Screen (RME) - General Chief Complaint: Wound Infection Stated Complaint: RIGHT LEG PAIN Time Seen by Provider: 03/31/17 21:25 Notes: 36-year-old female, reports that she shot methamphetamine intravenously into her right lower leg on Tuesday, has had progressive pain, redness, swelling to the area since that time. She is a diabetic, takes insulin. Tetanus reportedly up-to-date. She denies fever, vomiting, or any other symptoms. TRAVEL OUTSIDE OF THE [place] IN LAST 30 DAYS: No - Related Data Allergies/Adverse Reactions: levofloxacin [From Levaquin] Allergy (Verified 12/05/16 19:45) Past Medical History Endocrine Medical History: Reports: Hx Diabetes Mellitus Type 1 Renal/ Medical History: Denies: Hx Peritoneal Dialysis GI Medical History: Reports: Hx Gastroesophageal Reflux Disease Psychiatric Medical History: Reports: Hx Bipolar Disorder, Hx Depression Past Surgical History: Reports: Hx Section, Hx Cholecystectomy, Hx Orthopedic Surgery - right wrist - Immunizations Hx Diphtheria, Pertussis, Tetanus Vaccination: Yes Physical Exam - Vital signs Vitals: Temp Pulse Resp BP Pulse Ox 98.6 F 98 20 132/80 H 100 03/31/17 20:44 03/31/17 20:44 03/31/17 20:44 03/31/17 20:44 03/31/17 20:44 - Extremities General lower extremity: Other - Right upper calf area with mild swelling, no obvious fluctuance or head, area has some erythema and tenderness, no streaking away from the area, normal lower extremity exam otherwise Course - Vital Signs Vital signs: Temp Pulse Resp BP Pulse Ox 98.6 F 98 20 132/80 H 100 03/31/17 20:44 03/31/17 20:44 03/31/17 20:44 03/31/17 20:44 03/31/17 20:44
[2017-03-31 22:05] LABS: ABSOLUTE BASOPHILS # (AUTO) 0.1 10^3/uL (0.0-0.2); ABSOLUTE LYMPHOCYTES (AUTO) 2.8 10^3/uL (0.5-4.7); ABSOLUTE MONOCYTES (AUTO) 0.4 10^3/uL (0.1-1.4); ABSOLUTE NEUT (AUTO) 4.4 10^3/uL (1.7-8.2); MEAN CORPUSCULAR HGB CONC 32.4 g/dL (32.0-36.0); RED BLOOD COUNT 4.68 10^6/uL (3.72-5.28)
[2017-03-31 22:10] LABS: ABSOLUTE EOSINOPHILS # (AUTO) 0.2 10^3/uL (0.0-0.6); BASOPHILS % (AUTO) 1.3 % (0-2); EOSINOPHILS % (AUTO) 2.9 % (0-6); HEMATOCRIT 40.3 % (36.0-47.0); HEMOGLOBIN 13.1 g/dL (12.0-15.5); LYMPHOCYTES % (AUTO) 35.3 % (13-45); MEAN CORPUSCULAR HEMOGLOBIN 27.9 pg (27.0-33.4); MEAN CORPUSCULAR VOLUME 86 fl (80-97); MONOCYTES % (AUTO) 5.5 % (3-13); RED CELL DISTRIBUTION WIDTH 13.8 % (11.5-14.0)
[2017-03-31 22:25] LABS: ANION GAP 17 (5-19); BLOOD UREA NITROGEN 12 mg/dL (7-20); CALCIUM 10.4 mg/dL (8.4-10.2); CARBON DIOXIDE 24 mmol/L (22-30); CHLORIDE 104 mmol/L (98-107); GLUCOSE 76 mg/dL (75-110); POTASSIUM 4.1 mmol/L (3.6-5.0); SODIUM 144.8 mmol/L (137-145)
[2017-03-31] MEDS ORDERED: LIDOCAINE 1% INJ-PF (10 MG/ML) 30 ML SDV INJ ONE (23:14)
--- NOTE | 2017-03-31 23:17 | ER Document Report ---
ED General - General Chief Complaint: Wound Infection Stated Complaint: RIGHT LEG PAIN Time Seen by Provider: 03/31/17 21:25 Mode of Arrival: Ambulatory Information source: Patient Notes: 36-year-old female who injects methamphetamine who presents with complaints of right leg abscess. Patient notes injected last on Tuesday noticed the redness worsened since. Denies any fevers or chills TRAVEL OUTSIDE OF THE [place] IN LAST 30 DAYS: No - HPI Onset: Last week Onset/Duration: Persistent Quality of pain: Achy, Burning Severity: Mild Pain Level: 1 Associated symptoms: Other Exacerbated by: Denies Relieved by: Denies Similar symptoms previously: Yes Recently seen / treated by doctor: Yes - Related Data Allergies/Adverse Reactions: levofloxacin [From Levaquin] Allergy (Verified 12/05/16 19:45) Past Medical History - Social History Smoking Status: Current Every Day Smoker Cigarette use (# per day): Yes Chew tobacco use (# tins/day): No Smoking Education Provided: No Drug Abuse: Methamphetamine Family History: DM, Hypertension Patient has suicidal ideation: No Patient has homicidal ideation: No Endocrine Medical History: Reports: Hx Diabetes Mellitus Type 1 Renal/ Medical History: Denies: Hx Peritoneal Dialysis GI Medical History: Reports: Hx Gastroesophageal Reflux Disease Psychiatric Medical History: Reports: Hx Bipolar Disorder, Hx Depression Past Surgical History: Reports: Hx Section, Hx Cholecystectomy, Hx Orthopedic Surgery - right wrist - Immunizations Hx Diphtheria, Pertussis, Tetanus Vaccination: Yes Hx Pneumococcal Vaccination: 11/10/15 Review of Systems - Review of Systems Notes: REVIEW OF SYSTEMS: CONSTITUTIONAL : Denies fever, chills, or sweats. Denies recent illness. EENT: Denies eye, ear, throat, or mouth pain or symptoms. Denies nasal or sinus congestion or discharge. Denies throat, tongue, or mouth swelling or difficulty swallowing. CARDIOVASCULAR: Denies chest pain. Denies palpitations or racing or irregular heart beat. Denies ankle edema. RESPIRATORY: Denies cough, cold, or chest congestion. Denies shortness of breath, difficulty breathing, or wheezing. GASTROINTESTINAL: Denies abdominal pain or distention. Denies nausea, vomiting , or diarrhea. Denies blood in vomitus, stools, or per rectum. Denies black, tarry stools. Denies constipation. GENITOURINARY: Denies difficulty urinating, painful urination, burning, frequency, blood in urine, or discharge. FEMALE GENITOURINARY: Denies vaginal bleeding, heavy or abnormal periods, irregular periods. Denies vaginal discharge or odor. MUSCULOSKELETAL: Denies back or neck pain or stiffness. Denies joint pain or swelling. SKIN: Right leg redness HEMATOLOGIC : Denies easy bruising or bleeding. LYMPHATIC: Denies swollen, enlarged glands. NEUROLOGICAL: Denies confusion or altered mental status. Denies passing out or loss of consciousness. Denies dizziness or lightheadedness. Denies headache. Denies weakness or paralysis or loss of use of either side. Denies problems with gait or speech. Denies sensory loss, numbness, or tingling. Denies seizures. PSYCHIATRIC: Denies anxiety or stress. Denies depression, suicidal ideation, or homicidal ideation. ALL OTHER SYSTEMS REVIEWED AND NEGATIVE. PHYSICAL EXAMINATION: GENERAL: Well-appearing, well-nourished and in no acute distress. HEAD: Atraumatic, normocephalic. EYES: Pupils equal round and reactive to light, extraocular movements intact, conjunctiva are normal. ENT: Nares patent, oropharynx clear without exudates. Moist mucous membranes. NECK: Normal range of motion, supple without lymphadenopathy LUNGS: Breath sounds clear to auscultation bilaterally and equal. No wheezes rales or rhonchi. HEART: Regular rate and rhythm without murmurs ABDOMEN: Soft, nontender, nondistended abdomen. No guarding, no rebound. No masses appreciated. Female : deferred Musculoskeletal: Normal range of motion, no pitting or edema. No cyanosis. NEUROLOGICAL: Cranial nerves grossly intact. Normal speech, normal gait. Normal sensory, motor exams PSYCH: Normal mood, normal affect. SKIN: Area of fluctuance erythema measuring 3 x 3 cm of the right medial calf anterior Dictation was performed using [employer] voice recognition software Physical Exam - Vital signs Vitals: Temp Pulse Resp BP Pulse Ox 98.6 F 98 20 132/80 H 100 03/31/17 20:44 03/31/17 20:44 03/31/17 20:44 03/31/17 20:44 03/31/17 20:44 Course - Re-evaluation Re-evalutation: 03/31/17 23:17 This is an abscess secondary to methamphetamine injection. Ultrasound was performed area will be I&D antibiotics will be started lab work notes no significant systemic infection 04/01/17 00:22 Area was incised pus was drained patient will be started on antibiotics, I explained my concerns for possible worsening infection Patient states she understands, I have encouraged her to stop using methamphetamines After performing a Medical Screening Examination, I estimate there is LOW risk for OPEN FRACTURE, COMPARTMENT SYNDROME, TENDON RUPTURE, ACUTE NEUROVASCULAR INJURY, or RETAINED FOREIGN BODY, thus I consider the discharge disposition reasonable. Also, there is no evidence or peritonitis, sepsis, or toxicity. I have reevaluated this patient multiple times and no significant life threatening changes are noted. The patient and I have discussed the diagnosis and risks, and we agree with discharging home with close follow-up with the understanding that symptoms and presentations can change. We also discussed returning to the Emergency Department immediately if new or worsening symptoms occur. We have discussed the symptoms which are most concerning (e.g., changing or worsening pain, fever, numbness, weakness, cool or painful digits) that necessitate immediate return. - Vital Signs Vital signs: Temp Pulse Resp BP Pulse Ox 98.6 F 98 20 132/80 H 100 03/31/17 20:44 03/31/17 20:44 03/31/17 20:44 03/31/17 20:44 03/31/17 20:44 - Laboratory Result Diagrams: 03/31/17 21:40 03/31/17 21:40 Laboratory results interpreted by me: 03/31/17 21:40 Calcium 10.4 H - Diagnostic Test Radiology reviewed: Image reviewed, Reports reviewed - Report given to patient Procedures - Incision and Drainage Right Leg Time completed: 00:22 Type: Simple, Single Anesthetic type: 1% Lidocaine mL's of anesthetic: 10 Blade size: 11 I&D procedure: Betadine prep applied, Sterile dressing applied, Other Incision Method: Incision made by scalpel Amount/type of drainage: moderate amount of black and white pus Discharge - Discharge Clinical Impression: Abscess, Uses drugs by intramuscular injection Condition: Stable Disposition: HOME, SELF-CARE Instructions: Abscess ([facility]) Prescriptions: Cephalexin Monohydrate [Keflex 500 mg Capsule] 500 mg PO QID #40 capsule Sulfamethoxazole/Trimethoprim [Bactrim Ds Tablet] 2 each PO BID #40 tablet Referrals: [facility] [Primary Care Provider] - Follow up tomorrow
--- NOTE | 2017-03-31 23:22 | RADIOLOGY REPORT (SQ) ---
EXAM DESCRIPTION: U/S EXTREMITY NONVASCULAR LTD COMPLETED DATE/TIME: 03/31/2017 11:11 pm REASON FOR STUDY: right leg redness/swelling, IV drug use COMPARISON: None. TECHNIQUE: Dynamic and static grayscale images acquired of the localized site of clinical concern an d recorded on PACS. Additional selected color Doppler and spectral images recorded. SITE OF CONCERN: Right medial calf LIMITATIONS: None. FINDINGS: SKIN AND SUBCUTANEOUS TISSUES: Edematous soft tissues are identified containing undulating linear fluid collections. DEEP SOFT TISSUES/MUSCLES: No masses. No fluid collections. No edema. VASCULAR: No increased or decreased vascularity. No occlusions. OTHER: No other significant finding. IMPRESSION: Edematous soft tissues are identified containing undulating linear fluid collections. T he appearance is most consistent with a cellulitis. I cannot exclude developing abscess collections. TECHNICAL DOCUMENTATION: JOB ID: [id number] [employer]- All Rights Reserved
[2017-04-01] MEDS ORDERED: CEPHALEXIN 500 MG CAPSULE PO ONE (00:19)
[2017-04-01] MEDS ORDERED: SULFAMETHOXAZOLE/TRIMETHOPRIM 800-160 MG TABLET PO ONE (00:19)
[2017-04-01 00:35] VITALS: BP 125/74
== END 2017-04-01 00:34 | disposition home or self-care (01) ==
LOC: ER 20:11
PROC: 0H9KXZZ Drainage of Right Lower Leg Skin, External Approach (ICD-10-PCS; principal; 2017-03-31)
DX: L02.415 Cutaneous abscess of right lower limb (principal); F15.10 Other stimulant abuse, uncomplicated; E10.9 Type 1 diabetes mellitus without complications; Z88.1 Allergy status to other antibiotic agents; F17.210 Nicotine dependence, cigarettes, uncomplicated
CPT/HCPCS: 10060; 99284; 36415; 87040; 84703; 85025; 80048; 76882; J3490

== ENCOUNTER 2017-05-05 18:56 | Emergency (ER) | payer OTHER ==
[2017-05-05] MEDS ORDERED: ACETAMINOPHEN 325 MG TABLET PO ONE (19:43)
--- NOTE | 2017-05-05 20:14 | RADIOLOGY REPORT (SQ) ---
EXAM DESCRIPTION: HAND RIGHT 3 VIEWS COMPLETED DATE/TIME: 05/05/2017 8:05 pm REASON FOR STUDY: punched wall, r 3/4 MCP pain COMPARISON: None. EXAM PARAMETERS: NUMBER OF VIEWS: Three views. TECHNIQUE: AP, lateral and oblique radiographic images acquired of the right hand. LIMITATIONS: None. FINDINGS: MINERALIZATION: Normal. BONES: No acute fracture or dislocation. No worrisome bone lesions. JOINTS: No effusions. SOFT TISSUES: No soft tissue swelling. No foreign body. OTHER: No other significant finding. IMPRESSION: NEGATIVE STUDY OF THE RIGHT HAND. NO RADIOGRAPHIC EVIDENCE OF ACUTE INJURY. TECHNICAL DOCUMENTATION: JOB ID: [id number] [facility]- All Rights Reserved
[2017-05-05] MEDS ORDERED: HYDROCODONE/ACETAMINOPHEN 5-325 MG 6 TAB/DSPK PO PRN (20:19)
--- NOTE | 2017-05-05 20:21 | ER Document Report ---
HPI - HPI Patient complains to provider of: hand injury Onset: This morning Onset/Duration: Sudden Quality of pain: Sharp Pain Level: 3 Context: Patient states that she got mad today and punched a wall with her right hand. Patient is right-hand dominant. Patient states she has a history of fracture in her right hand from last year. Associated Symptoms: Other - r hand injury Exacerbated by: Movement Relieved by: Denies Similar symptoms previously: Yes Recently seen / treated by doctor: No - ROS ROS below otherwise negative: Yes Systems Reviewed and Negative: Yes All other systems reviewed and negative - CONSTITUTIONAL Constitutional: DENIES: Fever - NEURO Neurology: DENIES: Weakness - GASTROINTESTINAL Gastrointestinal: DENIES: Nausea - REPRODUCTIVE Reproductive: DENIES: : - MUSCULOSKELETAL Musculoskeletal: REPORTS: Extremity pain, Swelling - DERM Skin Color: Ecchymosis Skin Problems: None Past Medical History - General Information source: Patient - Social History Smoking Status: Never Smoker Frequency of alcohol use: None Drug Abuse: None Occupation: none Lives with: Spouse/Significant other Family History: DM, Hypertension Patient has suicidal ideation: No Patient has homicidal ideation: No Endocrine Medical History: Reports: Hx Diabetes Mellitus Type 1 Renal/ Medical History: Denies: Hx Peritoneal Dialysis GI Medical History: Reports: Hx Gastroesophageal Reflux Disease Psychiatric Medical History: Reports: Hx Bipolar Disorder, Hx Depression Past Surgical History: Reports: Hx Section, Hx Cholecystectomy, Hx Orthopedic Surgery - right wrist - Immunizations Hx Diphtheria, Pertussis, Tetanus Vaccination: Yes Hx Pneumococcal Vaccination: 11/10/15 Vertical Provider Document - CONSTITUTIONAL Agree With Documented VS: Yes Exam Limitations: No Limitations General Appearance: WD/WN, No Apparent Distress - INFECTION CONTROL TRAVEL OUTSIDE OF THE [place] IN LAST 30 DAYS: No - HEENT HEENT: Atraumatic, Normocephalic - NECK Neck: Normal Inspection - RESPIRATORY Respiratory: No Respiratory Distress O2 Sat by Pulse Oximetry: 99 - CARDIOVASCULAR Pulses: Normal: Radial - MUSCULOSKELETAL/EXTREMETIES Musculoskeletal/Extremeties: MAEW, Tender - In tenderness over right third and fourth MCP joint with overlying swelling and ecchymosis, no deformity., Edema, Eccymosis - NEURO Level of Consciousness: Awake, Alert, Appropriate Motor/Sensory: No Motor Deficit - DERM Integumentary: Warm, Dry, No Rash Course - Vital Signs Vital signs: Temp Pulse Resp BP Pulse Ox 98.8 F 81 18 127/78 H 99 07/27/17 19:21 05/05/17 19:21 05/05/17 19:21 05/05/17 19:21 05/05/17 19:21 - Diagnostic Test Radiology reviewed: Image reviewed, Reports reviewed Procedures - Immobilization Right Hand Pre-Proc Neuro Vasc Exam: Normal Immobilizer type: Angus wrap Performed by: RN Post-Proc Neuro Vasc Exam: Normal Alignment checked and good: Yes Discharge - Discharge Clinical Impression: Hand contusion Qualifiers: Encounter type: initial encounter Laterality: right Qualified Code(s): S60.221A - Contusion of right hand, initial encounter Condition: Stable Disposition: HOME, SELF-CARE Instructions: Contusion ([facility]), Angus Wrap ([facility]), Ice & Elevation ([facility]) Additional Instructions: Return immediately for any new or worsening symptoms Followup with your primary care provider, call tomorrow to make a followup appointment Follow-up with orthopedic doctor for any continued pain or problems Prescriptions: Naproxen [Naprosyn 250 Nmg Tablet] 1 tab PO BID #14 tablet Referrals: [facility] [Primary Care Provider] - Follow up as needed [facility] [Provider Group] - Follow up as needed
[2017-05-05 20:39] VITALS: BP 127/77
== END 2017-05-05 20:30 | disposition home or self-care (01) ==
LOC: ER 18:56
DX: S60.221A Contusion of right hand, initial encounter (principal); W22.01XA Walked into wall, initial encounter
CPT/HCPCS: 99283

== ENCOUNTER 2017-06-06 19:55 | Emergency (ER) | payer OTHER ==
[2017-06-06 21:08] VITALS: BP 123/81
[2017-06-06] MEDS ORDERED: OXYCODONE-ACETAMINOPHEN 5-325 MG TABLET PO ONE (22:22)
[2017-06-06] MEDS ORDERED: SULFAMETHOXAZOLE/TRIMETHOPRIM 800-160 MG TABLET PO ONE (22:23)
[2017-06-06] MEDS ORDERED: LIDOCAINE 1% INJ-PF (10 MG/ML) 30 ML SDV INJ ONE (22:23)
--- NOTE | 2017-06-06 22:26 | ER Document Report ---
ED Skin Rash/Insect Bite/Abscs - General Chief Complaint: Abscess Stated Complaint: POSSIBLE SPIDER BITE RIGHT CALF Time Seen by Provider: 06/06/17 21:48 Mode of Arrival: Ambulatory Information source: Patient TRAVEL OUTSIDE OF THE [place] IN LAST 30 DAYS: No - HPI Patient complains to provider of: Tender/swollen area Onset: Other - 2 weeks Onset/Duration: Persistent, Worse Quality of pain: Pressure Severity: Moderate Pain Level: 3 Skin Character: Abscess Quality of rash: Painful Notes: Patient is a 36-year-old female who is a diabetic presenting to the emergency room today complaining of 2 week history to redness and swelling to the posterior portion of her right calf, states she was bitten by something in this area, attempted to poke it with 1 of her insulin meals to see if she can drain any pus out of it but it is gotten worse, she denies any fevers, she does have a history of abscesses in the past requiring incision and drainage - Related Data Allergies/Adverse Reactions: levofloxacin [From Levaquin] Allergy (Verified 12/05/16 19:45) Past Medical History - General Information source: Patient - Social History Smoking Status: Never Smoker Family History: DM, Hypertension Patient has suicidal ideation: No Patient has homicidal ideation: No Endocrine Medical History: Reports: Hx Diabetes Mellitus Type 1 Renal/ Medical History: Denies: Hx Peritoneal Dialysis GI Medical History: Reports: Hx Gastroesophageal Reflux Disease Psychiatric Medical History: Reports: Hx Bipolar Disorder, Hx Depression Past Surgical History: Reports: Hx Section, Hx Cholecystectomy, Hx Orthopedic Surgery - right wrist - Immunizations Hx Diphtheria, Pertussis, Tetanus Vaccination: Yes Hx Pneumococcal Vaccination: 11/10/15 Review of Systems - Review of Systems Constitutional: No symptoms reported EENT: No symptoms reported Cardiovascular: No symptoms reported Respiratory: No symptoms reported Gastrointestinal: No symptoms reported Genitourinary: No symptoms reported Female Genitourinary: No symptoms reported Musculoskeletal: No symptoms reported Skin: See HPI Hematologic/Lymphatic: No symptoms reported Neurological/Psychological: No symptoms reported -: Yes All other systems reviewed and negative Physical Exam - Vital signs Vitals: Temp Pulse Resp BP Pulse Ox 97.9 F 82 16 123/81 94 06/06/17 21:00 06/06/17 21:00 06/06/17 21:00 06/06/17 21:00 06/06/17 21:00 - Notes Notes: - General General appearance: Appears well, Alert In distress: None - HEENT Head: Normocephalic, Atraumatic Eyes: Normal Conjunctiva: Normal Extraocular movements intact: Yes Eyelashes: Normal Pupils: PERRL - Respiratory Respiratory status: No respiratory distress - Cardiovascular Rhythm: Regular - Abdominal Inspection: Normal - Back Back: Normal - Extremities General upper extremity: Normal inspection General lower extremity: In the posterior portion of the right calf there is a 3 cm area of induration, erythema, tenderness, with fluctuance and firmness consistent with a subcutaneous abscess - Neurological Neuro grossly intact: Yes Orientation: AAOx4 [place] Coma Scale Eye Opening: Spontaneous [place] Coma Scale Verbal: Oriented Mary Coma Scale Motor: Obeys Commands [place] Coma Scale Total: 15 - Psychological Associated symptoms: Normal affect, Normal mood - Skin Skin Temperature: Warm Skin Moisture: Dry Skin Color: Normal Course - Re-evaluation Re-evalutation: 06/07/17 01:23 Incision and drainage was performed, patient was placed on antibiotics and provided with pain medication, advised to follow-up or return if symptoms worsen , patient acknowledges understanding and agreement with this plan - Vital Signs Vital signs: Temp Pulse Resp BP Pulse Ox 97.9 F 82 16 123/81 94 06/06/17 21:00 06/06/17 21:00 06/06/17 21:00 06/06/17 21:00 06/06/17 21:00 Procedures - Incision and Drainage Right Posterior Leg Time completed: :23 Type: Simple Anesthetic type: 1% Lidocaine mL's of anesthetic: 5 Blade size: 11 I&D procedure: Chlorprep applied Incision Method: Incision made by scalpel Amount/type of drainage: Moderate amount of purulent drainage Discharge - Discharge Clinical Impression: Abscess of leg Condition: Stable Disposition: HOME, SELF-CARE Instructions: Abscess ([facility]), Oral Narcotic Medication ([facility]), Post Incision and Drainage, Trimethoprim-Sulfa ([facility]) Additional Instructions: Follow up with your primary care provider in one to 2 days. Return to the emergency room immediately if symptoms worsen or any additional concerns. Prescriptions: Hydrocodone/Acetaminophen [Hydrocodon-Acetaminophen 5-325] 1 each PO Q6 #20 tablet Sulfamethoxazole/Trimethoprim [Bactrim Ds Tablet] 1 each PO BID #20 tablet
== END 2017-06-06 22:55 | disposition home or self-care (01) ==
LOC: ER 19:55
PROC: 0H9KXZZ Drainage of Right Lower Leg Skin, External Approach (ICD-10-PCS; principal; 2017-06-06)
DX: L02.415 Cutaneous abscess of right lower limb (principal); E10.9 Type 1 diabetes mellitus without complications; Z88.1 Allergy status to other antibiotic agents
CPT/HCPCS: 99283; 10060; J3490

== ENCOUNTER 2017-09-23 22:23 | Emergency (ER) | payer OTHER ==
[2017-09-24] MEDS ORDERED: CEPHALEXIN 500 MG CAPSULE PO ONE (00:06)
[2017-09-24] MEDS ORDERED: SULFAMETHOXAZOLE/TRIMETHOPRIM 800-160 MG TABLET PO ONE (00:06)
--- NOTE | 2017-09-24 00:12 | ER Document Report ---
ED General - General Mode of Arrival: Ambulatory Information source: Patient TRAVEL OUTSIDE OF THE [place] IN LAST 30 DAYS: No - HPI Onset: Other <BEAU LAL - Last Filed: 09/24/17 03:39> <LAURA WALKER - Last Filed: 09/24/17 04:07> - General Chief Complaint: Wound on leg/Bilat ear pain Stated Complaint: EARACHE,POSSIBLE LEG INFECTION Time Seen by Provider: 09/23/17 23:50 Notes: Patient is a 36 year old female with a history of Type 1 Diabetes, ear infections, and abscess presents to the emergency department complaining of a possible abscess on her lower left leg onset 6 days ago. Patient states she originally thought it was a splinter and she started to pick at it with a needle. Patient states that she also has an right ear pain onset 2 weeks ago and left ear pain onset 2 days ago as well as a cough. PAtient denies fever, nasal congestion, or runny nose. Patient states she checked her blood sugar and found it to be high, states she feels like it is in the 800s. (BEAU LAL) - Related Data Allergies/Adverse Reactions: levofloxacin [From Levaquin] Allergy (Verified 08/18/17 19:05) Past Medical History - General Information source: Patient - Social History Smoking Status: Never Smoker Cigarette use (# per day): No Chew tobacco use (# tins/day): No Smoking Education Provided: No Frequency of alcohol use: None Drug Abuse: None Family History: DM, Hypertension Endocrine Medical History: Reports: Hx Diabetes Mellitus Type 1 GI Medical History: Reports: Hx Gastroesophageal Reflux Disease Psychiatric Medical History: Reports: Hx Bipolar Disorder, Hx Depression Past Surgical History: Reports: Hx Section, Hx Cholecystectomy, Hx Orthopedic Surgery - right wrist - Immunizations Hx Diphtheria, Pertussis, Tetanus Vaccination: Yes Hx Pneumococcal Vaccination: 11/10/15 <BEAU LAL - Last Filed: 09/24/17 03:39> Review of Systems - Review of Systems Constitutional: No symptoms reported EENT: See HPI, Ear pain. denies: Nose congestion Cardiovascular: No symptoms reported Respiratory: No symptoms reported Gastrointestinal: No symptoms reported Genitourinary: No symptoms reported Female Genitourinary: No symptoms reported Musculoskeletal: See HPI Skin: See HPI Hematologic/Lymphatic: No symptoms reported Neurological/Psychological: No symptoms reported -: Yes All other systems reviewed and negative <BEAU LAL - Last Filed: 09/24/17 03:39> Physical Exam <BEAU LAL - Last Filed: 09/24/17 03:39> <LAURA WALKER - Last Filed: 09/24/17 04:07> - Vital signs Vitals: Temp Pulse Resp BP Pulse Ox 98.7 F 99 16 111/73 97 09/23/17 23:00 09/23/17 23:00 09/23/17 23:00 09/23/17 23:00 09/23/17 23:00 - Notes Notes: Bedside ultrasound performed and showed no evidence of abscess. GENERAL: Alert, interacts well. No acute distress. HEAD: Normocephalic, atraumatic. EYES: Pupils equal, round, and reactive to light. Extraocular movements intact. ENT: Oral mucosa moist, tongue midline. Scarring of bilateral TM's. NECK: Full range of motion. Supple. Trachea midline. LUNGS: Clear to auscultation bilaterally, no wheezes, rales, or rhonchi. No respiratory distress. HEART: Regular rate and rhythm. No murmurs, gallops, or rubs. ABDOMEN: Soft, non-tender. Non-distended. Bowel sounds present in all 4 quadrants. EXTREMITIES: 6cm x 5cm area of erythema located on the medial aspect of left calf, firm, no exudates. mildly tender to palpation. Moves all 4 extremities spontaneously. No edema, radial and dorsalis pedis pulses 2/4 bilaterally. No cyanosis. NEUROLOGICAL: Alert and oriented x3. Normal speech. . PSYCH: Normal affect, normal mood. (BEAU LAL) Course - Laboratory Result Diagrams: 09/24/17 01:22 09/24/17 01:22 <BEAU LAL - Last Filed: 09/24/17 03:39> - Laboratory Result Diagrams: 09/24/17 01:22 09/24/17 01:22 <LAURA WALKER - Last Filed: 09/24/17 04:07> - Re-evaluation Re-evalutation: 09/24/17 02:00 CMP unremarkable with the exception of elevated glucose at 385, no anion gap, CO2 normal. Patient is a difficult stick, test is negative. No need for further blood work, I will cancel venous blood gas and the CBC. Bedside ultrasound does not show any evidence of drainable fluid collection. Patient has been given Bactrim and Keflex, will be discharged home on Bactrim and Keflex as well. (LAURA WALKER) - Vital Signs Vital signs: Temp Pulse Resp BP Pulse Ox 98.6 F 83 16 111/77 99 09/24/17 02:19 09/24/17 02:19 09/24/17 02:19 09/24/17 02:19 09/24/17 02:19 - Laboratory Laboratory results interpreted by me: 09/24/17 09/24/17 01:15 01:22 Glucose 385 H POC Glucose 382 H Discharge <BEAU LAL - Last Filed: 09/24/17 03:39> <LAURA WALKER - Last Filed: 09/24/17 04:07> - Discharge Clinical Impression: Cellulitis of left leg without foot Type 1 diabetes Qualifiers: Diabetes mellitus complication status: with hyperglycemia Qualified Code(s): E10.65 - Type 1 diabetes mellitus with hyperglycemia Condition: Stable Disposition: HOME, SELF-CARE Additional Instructions: Please do not pick at your left leg infection. Please take the Bactrim and Keflex until they are gone. Please return for fevers or spreading of the redness. Please soak your leg in Epsom salts soaks twice a day. Epsom salts may be bought at your local pharmacy or drugstore, there are instructions on the Epsom salts on how to mix them. Prescriptions: Cephalexin Monohydrate [Keflex 500 mg Capsule] 1,000 mg PO BID #28 capsule Sulfamethoxazole/Trimethoprim [Bactrim Ds Tablet] 1 each PO BID #14 tablet Referrals: ROSALVA MART MD [ACTIVE STAFF] - Follow up as needed Scribe Attestation: 09/24/17 04:07 I personally performed the services described in the documentation, reviewed and edited the documentation which was dictated to the scribe in my presence, and it accurately records my words and actions. (LAURA WALKER) Scribe Documentation - Scribe Written by Scribe:: Maris Hardin, 09/24/2017 00:16 acting as scribe for :: Christiano <BEAU LAL - Last Filed: 09/24/17 03:39>
[2017-09-24 01:47] LABS: ALANINE AMINOTRANSFERASE 22 U/L (9-52); ALBUMIN 3.8 g/dL (3.5-5.0); ALKALINE PHOSPHATASE 112 U/L (38-126); ANION GAP 14 (5-19); ASPARTATE AMINO TRANSFERASE 16 U/L (14-36); BILIRUBIN,DIRECT 0.2 mg/dL (0.0-0.4); BILIRUBIN,TOTAL 0.3 mg/dL (0.2-1.3); BLOOD UREA NITROGEN 13 mg/dL (7-20); CALCIUM 9.6 mg/dL (8.4-10.2); CARBON DIOXIDE 25 mmol/L (22-30); CHLORIDE 99 mmol/L (98-107); CREATININE RESULT 0.76 mg/dL (0.52-1.25); GLUCOSE 385 mg/dL (75-110); POTASSIUM 4.6 mmol/L (3.6-5.0); SODIUM 138.4 mmol/L (137-145); TOTAL PROTEIN 6.7 g/dL (6.3-8.2)
[2017-09-24 03:21] VITALS: BP 111/77
== END 2017-09-24 02:20 | disposition home or self-care (01) ==
LOC: ER 22:23
DX: L03.116 Cellulitis of left lower limb (principal); E10.65 Type 1 diabetes mellitus with hyperglycemia; H92.03 Otalgia, bilateral; Z90.49 Acquired absence of other specified parts of digestive tract
CPT/HCPCS: 36415; 80053; 82962; 84703; 99283

== ENCOUNTER 2018-09-27 20:28 | Emergency (ER) | payer OTHER ==
--- NOTE | 2018-09-27 21:38 | RADIOLOGY REPORT (SQ) ---
EXAM DESCRIPTION: XR FOREARM 2 VIEWS COMPLETED DATE/TME: 09/27/2018 21:05 CLINICAL HISTORY: 37 years, Female, pain Findings: Bony alignment is anatomic. No fracture or dislocation. Soft tissues are unremarkable. IMPRESSION: No fracture.
--- NOTE | 2018-09-27 21:39 | RADIOLOGY REPORT (SQ) ---
EXAM DESCRIPTION: XR HAND 3 OR MORE VIEWS COMPLETED DATE/TME: 09/27/2018 21:06 CLINICAL HISTORY: 37 years, Female, pain Findings: Bony alignment is anatomic. No fracture or dislocation. Soft tissues are unremarkable. IMPRESSION: No fracture.
--- NOTE | 2018-09-27 22:41 | ER Document Report ---
ED Extremity Problem, Upper - General Chief Complaint: Arm Injury Stated Complaint: RIGHT HAND PAIN Time Seen by Provider: 09/27/18 20:59 Mode of Arrival: Ambulatory Information source: Patient Notes: Patient is a 37-year-old female comes emergency room complaining of right forearm and wrist pain. Patient states that 2 years ago while she was in [place] in jail she fractured her forearm and close to the wrist. 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 This area of pain tonight is along the thumb side of the tendon. There is a defect right along that forearm area just about 2 inches above the wrist or metacarpals. It does appear to be along the radius and it appears to be surgical in nature. It is healed and there is no problem. Patient has tenderness all along that extensor tendon. TRAVEL OUTSIDE OF THE [place] IN LAST 30 DAYS: No - HPI Patient complains to provider of: Pain, Right, Forearm, Hand, Wrist Onset: Last week Recent injury: No Where: Other - Unknown Quality of pain: Achy, Sharp Severity of pain: Moderate Pain Level: 3 Exacerbated by: Movement Relieved by: Rest Similar symptoms previously: Yes Recently seen / treated by doctor: No - Related Data Allergies/Adverse Reactions: levofloxacin [From Levaquin] Allergy (Verified 08/18/17 19:05) Past Medical History - Social History Smoking Status: Never Smoker Cigarette use (# per day): No Chew tobacco use (# tins/day): No Smoking Education Provided: Yes Frequency of alcohol use: None Drug Abuse: None Occupation: Unemployed currently Lives with: Spouse/Significant other Family History: Reviewed & Not Pertinent, DM, Hypertension Patient has suicidal ideation: No Patient has homicidal ideation: No Endocrine Medical History: Reports: Hx Diabetes Mellitus Type 1 Renal/ Medical History: Denies: Hx Peritoneal Dialysis GI Medical History: Reports: Hx Gastroesophageal Reflux Disease Psychiatric Medical History: Reports: Hx Bipolar Disorder, Hx Depression Past Surgical History: Reports: Hx Section, Hx Cholecystectomy, Hx Orthopedic Surgery - right wrist, left wrist - Immunizations Hx Diphtheria, Pertussis, Tetanus Vaccination: Yes Hx Pneumococcal Vaccination: 11/10/15 Review of Systems - Review of Systems Constitutional: No symptoms reported EENT: No symptoms reported Cardiovascular: No symptoms reported Respiratory: No symptoms reported Gastrointestinal: No symptoms reported Genitourinary: No symptoms reported Female Genitourinary: No symptoms reported Musculoskeletal: See HPI, Muscle pain Skin: No symptoms reported Hematologic/Lymphatic: No symptoms reported Neurological/Psychological: No symptoms reported -: Yes All other systems reviewed and negative Physical Exam - Vital signs Vitals: Temp Pulse Resp BP Pulse Ox 98.5 F 75 16 137/93 H 100 09/27/18 20:37 09/27/18 20:37 09/27/18 20:37 09/27/18 20:37 09/27/18 20:37 Interpretation: Hypertensive - Notes Notes: PHYSICAL EXAMINATION: GENERAL: Patient is a well-nourished well-developed 37-year-old female who is in no apparent distress on physical examination this evening. HEAD: Atraumatic, normocephalic. NECK: Normal range of motion, supple without lymphadenopathy LUNGS: Breath sounds clear to auscultation bilaterally and equal. No wheezes rales or rhonchi. HEART: Regular rate and rhythm without murmurs. Female : deferred Musculoskeletal: Patient's area of concern is her right distal forearm and wrist and area dorsal side. Termination of the forearm is where most of the discomfort and pain is located. There is evidence of a surgical scar running along the flexor tendon in the distal portion of the radius along the thumb line. Patient has pain and discomfort with extension of the thumb. Also very sensitive to palpation in the same area. Patient also has decreased light bulb assembler strength on that side of the right hand. She has good cap refill in the nailbeds of the right fingernails. She has good radial ulnar pulse as well as a good brachial pulse. She has full range of motion at the wrist. NEUROLOGICAL: Normal speech, normal gait. Normal sensory, motor exams PSYCH: Normal mood, normal affect. SKIN: Warm, Dry, normal turgor, no rashes or lesions noted. Course - Re-evaluation Re-evalutation: 09/28/18 17:04 Patient is x-ray showed no acute findings. Which is in contrast the patient tell me that she fractured the area and that if he had a nonunion there. With the surgical site is or what I thought was surgical site may have been an entrance point of a foreign body that was removed. Patient does display a tendinitis type presentation on that side due to palpation as well as due to movement and so I am treating her with a course of steroids and a few days of pain management. She has her own splint that was placed on her according to her in [place] 2 years ago and wishes to wear that rather than 1 of ours. It appears to be still functional I have no problem with her doing her own. Given that information patient will not wear her own we did not apply a splint to this patient. 09/28/18 17:04 09/28/18 17:06 - Vital Signs Vital signs: Temp Pulse Resp BP Pulse Ox 98.3 F 84 18 132/80 H 99 09/27/18 22:58 09/27/18 22:58 09/27/18 22:58 09/27/18 22:58 09/27/18 22:58 Discharge - Discharge Clinical Impression: Tendinitis of right wrist, Tendinitis of right hand Condition: Stable Disposition: HOME, SELF-CARE Additional Instructions: Tendonitis The pain you are having is due to tendonitis -- an inflammation around a muscle tendon. It's usually caused by overuse or repeated minor injuries (strains) of the tendon. Tendonitis can take two to four weeks to heal. In fact, you may actually worsen for a few days despite treatment. Tendonitis is usually treated with rest, local heat, and antiinflammatory medication. Sometimes cold packs are recommended if the tendonitis has just started. If the pain is severe or prolonged, cortisone injections may be required. Call the doctor if pain or swelling become severe, if new discoloration or redness appears, or if numbness is noted. Continue to use the splint you were given previously which should help some. I am putting you on a steroid taper for 6 days which should help tremendously because this is an inflammatory kind of a problem. I will give you 6 pills for sleep at night and after that you will need to follow-up with orthopedist or your primary care. If you do not have one I suggest going to the [facility] that is here locally they work out he will see if you have insurance if you do not have insurance or if you have a combination of the above. He also have a sliding scale if you work. They can get you in appointment with an orthopedist. However how to give you the name of the orthopedist airport operations officer tonight you may contact their office to see if they can accommodate you. Sometimes it may take a steroid injection in the local area to help this out. Prescriptions: Hydrocodone/Acetaminophen [[place] 5-325 Tablet] 1 each PO HSP PRN #10 tablet PRN Reason: Prednisone 10 mg PO ASDIR PRN 6 Days #1 tab.ds.pk PRN Reason: Forms: Elevated Blood Pressure, Special Work Note, Smoking Cessation Education, Return to Work Referrals: JUSTINA WHEAT MD [ACTIVE STAFF] - Follow up as needed
[2018-09-27 22:59] VITALS: BP 132/80
== END 2018-09-27 23:00 | disposition home or self-care (01) ==
LOC: ER 20:28
DX: M77.8 Other enthesopathies, not elsewhere classified (principal); E10.9 Type 1 diabetes mellitus without complications; Z98.890 Other specified postprocedural states; Z88.1 Allergy status to other antibiotic agents
CPT/HCPCS: 99283

== ENCOUNTER 2019-07-12 23:55 | Emergency (ER) | payer SELFPAY ==
--- NOTE | 2019-07-13 00:42 | ER Document Report ---
ED Medical Screen (RME) - General Stated Complaint: HAND INJURY Time Seen by Provider: 07/13/19 00:39 Mode of Arrival: Ambulatory Information source: Patient Notes: Patient is a 38-year-old female who presents to the emergency department after the unfortunate event of her punching the ceiling of her car thus breaking the compartment light with her hand. Patient now has significant swelling to the dorsal surface of her right hand with multiple abrasions. Cap refills less than 3 seconds, patient has normal sensation distal to injury but cannot to make a full fist. Will send for x-rays. Patient reports up-to-date on her Tdap. I have greeted and performed a rapid initial assessment of this patient. A comprehensive ED assessment and evaluation of the patient, analysis of test results and completion of the medical decision making process will be conducted by additional ED providers. I have specifically instructed the patient or family members with the patient to immediately return to any nursing staff s hould anything change in the patient's condition or with their chief complaint. This medical record was dictated with voice recognizing software. There may be grammatical, syntax errors that are unintended. TRAVEL OUTSIDE OF THE [place] IN LAST 30 DAYS: No - Related Data Allergies/Adverse Reactions: levofloxacin [From Levaquin] Allergy (Verified 08/18/17 19:05) Past Medical History Endocrine Medical History: Reports: Hx Diabetes Mellitus Type 1 Renal/ Medical History: Denies: Hx Peritoneal Dialysis GI Medical History: Reports: Hx Gastroesophageal Reflux Disease Psychiatric Medical History: Reports: Hx Bipolar Disorder, Hx Depression Past Surgical History: Reports: Hx Section, Hx Cholecystectomy, Hx Orthopedic Surgery - right wrist, left wrist - Immunizations Hx Diphtheria, Pertussis, Tetanus Vaccination: Yes Physical Exam - Vital signs Vitals: Temp Pulse Resp BP Pulse Ox 98.1 F 91 20 132/79 H 99 07/13/19 00:07 07/13/19 00:07 07/13/19 00:07 07/13/19 00:07 07/13/19 00:07 Course - Vital Signs Vital signs: Temp Pulse Resp BP Pulse Ox 98.1 F 91 20 132/79 H 99 07/13/19 00:07 07/13/19 00:07 07/13/19 00:07 07/13/19 00:07 07/13/19 00:07
--- NOTE | 2019-07-13 02:07 | RADIOLOGY REPORT (SQ) ---
CLINICAL HISTORY: eval for fracture or retained FB/glass COMPARISON: None. TECHNIQUE: XR HAND 3 OR MORE VIEWS 07/13/2019 12:40 AM CDT FINDINGS: There is no fracture. Joint spaces are preserved. There is moderate dorsal soft tissue swelling. IMPRESSION: No fracture or radiopaque foreign body.
[2019-07-13] MEDS ORDERED: IBUPROFEN 800 MG TABLET PO ONE (03:49)
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
[2019-07-13 04:18] VITALS: BP 135/74
== END 2019-07-13 04:13 | disposition home or self-care (01) ==
LOC: ER 23:55
DX: S69.91XA Unspecified injury of right wrist, hand and finger(s), initial encounter (principal); W22.09XA Striking against other stationary object, initial encounter; E10.9 Type 1 diabetes mellitus without complications; Z90.49 Acquired absence of other specified parts of digestive tract

== ENCOUNTER 2020-01-09 10:05 | Emergency (ER) | payer SELFPAY ==
[2020-01-09] MEDS ORDERED: LIDOCAINE 1% INJ-PF (10 MG/ML) 30 ML SDV INJ ONE (10:27)
[2020-01-09] MEDS ORDERED: INSULIN REG, HUMAN 100 UNIT/ML 3 ML VIAL (PYX) SUBCUT ONE (10:33)
--- NOTE | 2020-01-09 10:56 | ER Document Report ---
ED General - General Chief Complaint: Abscess Stated Complaint: POSSIBLE BUG BITE Time Seen by Provider: 01/09/20 10:24 Mode of Arrival: Ambulatory Information source: Patient TRAVEL OUTSIDE OF THE [place] IN LAST 30 DAYS: No - HPI Notes: Patient presents complaining of scalp pain. This pain is on the left parietal area. She states to present for 5 days. It is gradually getting worse. It is sharp. It is constant. Is worse with touch summative left alone. It radiates across her head if touched. No other symptoms. She states she is diabetic but has not had a blood sugar checked in several months. She states she recently lost her job and does not have a primary care doctor. She does not have the strips to check her sugar. She states the only access to insulin she has is [id number] and nobody is changed the dose in several years. She denies any other symptoms. - Related Data Allergies/Adverse Reactions: levofloxacin [From Levaquin] Allergy (Verified 01/09/20 10:12) Home Medications: insulin 70/30- 20units BID Past Medical History - General Information source: Patient - Social History Smoking Status: Current Some Day Smoker Chew tobacco use (# tins/day): No Frequency of alcohol use: Occasional Drug Abuse: None Family History: Reviewed & Not Pertinent, DM, Hypertension Patient has suicidal ideation: No Patient has homicidal ideation: No Endocrine Medical History: Reports: Hx Diabetes Mellitus Type 1 Renal/ Medical History: Denies: Hx Peritoneal Dialysis GI Medical History: Reports: Hx Gastroesophageal Reflux Disease Psychiatric Medical History: Reports: Hx Bipolar Disorder, Hx Depression Past Surgical History: Reports: Hx Section, Hx Cholecystectomy, Hx Orthopedic Surgery - right wrist, left wrist - Immunizations Hx Diphtheria, Pertussis, Tetanus Vaccination: Yes Hx Pneumococcal Vaccination: 11/10/15 Review of Systems - Review of Systems Constitutional: denies: Chills, Fever Cardiovascular: denies: Chest pain, Palpitations Respiratory: denies: Cough, Short of breath Physical Exam - Vital signs Vitals: Temp Pulse Resp BP Pulse Ox 98.1 F 90 18 138/77 H 98 01/09/20 10:08 01/09/20 10:08 01/09/20 10:08 01/09/20 10:08 01/09/20 10:08 Interpretation: Normal - General General appearance: Appears well, Alert - HEENT Head: Normocephalic, Other - Patient has a small erythematous tender area on the left parietal scalp. It is about 1/4 cm in diameter. It has an adherent scab on it. It appears consistent with a small abscess. Eyes: Normal Pupils: PERRL - Respiratory Respiratory status: No respiratory distress Chest status: Nontender Breath sounds: Normal Chest palpation: Normal - Cardiovascular Rhythm: Regular Heart sounds: Normal auscultation Murmur: No - Abdominal Inspection: Normal Distension: No distension Bowel sounds: Normal Tenderness: Nontender Organomegaly: No organomegaly - Back Back: Normal, Nontender - Extremities General upper extremity: Normal inspection, Nontender, Normal color, Normal ROM, Normal temperature General lower extremity: Normal inspection, Nontender, Normal color, Normal ROM, Normal temperature, Normal weight bearing. No: Simeon's sign - Neurological Neuro grossly intact: Yes Cognition: Normal Orientation: AAOx4 Bicknell Coma Scale Eye Opening: Spontaneous Bicknell Coma Scale Verbal: Oriented Bicknell Coma Scale Motor: Obeys Commands Bicknell Coma Scale Total: 15 Speech: Normal Motor strength normal: LUE, RUE, LLE, RLE Sensory: Normal - Psychological Associated symptoms: Normal affect, Normal mood - Skin Skin Temperature: Warm Skin Moisture: Dry Skin Color: Normal Course - Re-evaluation Re-evalutation: 01/09/20 10:53 Patient has a small abscess this was I indeed in the room. She also was given a dose of insulin for elevated blood sugar. I have contacted the social services assistant, Sergio. We are going to refer the patient to [facility] and Sergio is also going to see if the diabetic clinic in [place] will work with her. If they will Sergio said she will contact the patient directly. - Vital Signs Vital signs: Temp Pulse Resp BP Pulse Ox 98.1 F 90 18 138/77 H 98 01/09/20 10:08 01/09/20 10:08 01/09/20 10:08 01/09/20 10:08 01/09/20 10:08 - Laboratory Laboratory results interpreted by me: 01/09/20 10:31 POC Glucose 434 H* Procedures - Incision and Drainage Left Head Time completed: 10:53 Type: Simple Anesthetic type: 1% Lidocaine Blade size: Other - 25g needle/forceps/scissors Incision Method: Incision made with needle Amount/type of drainage: 1cc Notes: 01/09/20 10:55 Use scissors needle and forceps to unroofed the scab with about 1 to 2 cc of pus expressed. Discharge - Discharge Clinical Impression: Hyperglycemia, Scalp abscess Condition: Stable Disposition: HOME, SELF-CARE Instructions: Post Incision and Drainage, Abscess ([facility]), Trimethoprim-Sulfa ([facility]), Diabetes ([facility]) Additional Instructions: It is very important that you follow-up with a primary provider as soon as possible. This is necessary to get your diabetes under control. If your blood sugars remain elevated you risk serious consequences such as stroke, heart attack, blindness, kidney failure, and even . Prescriptions: Sulfamethoxazole/Trimethoprim [Bactrim 400-80 mg Tablet] 1 each PO BID 7 Days #14 tablet Hydrocodone/Acetaminophen [[place] 5-325 mg Tablet] 1 tab PO Q6 PRN 3 Days #10 tablet PRN Reason: Referrals: [facility] [Provider Group] - Follow up tomorrow
[2020-01-09] MEDS ORDERED: IBUPROFEN 600 MG TABLET PO ONE (11:06)
[2020-01-09 11:18] VITALS: BP 137/83
== END 2020-01-09 11:25 | disposition home or self-care (01) ==
LOC: ER 10:05
DX: L02.811 Cutaneous abscess of head [any part, except face] (principal); E10.65 Type 1 diabetes mellitus with hyperglycemia; Z79.4 Long term (current) use of insulin; F17.200 Nicotine dependence, unspecified, uncomplicated; Z88.1 Allergy status to other antibiotic agents
CPT/HCPCS: 99283; 82962; 10060; J3490; J1815

== ENCOUNTER 2020-03-20 22:09 | Emergency (ER) | payer SELFPAY ==
[2020-03-20] MEDS ORDERED: NORMAL SALINE 1000 ML 1,000 ML IV PRN (22:39)
--- NOTE | 2020-03-20 22:39 | ER Document Report ---
ED Medical Screen (RME) - General Chief Complaint: Dizziness Stated Complaint: DIZZINESS Time Seen by Provider: 03/20/20 22:38 Information source: Patient Notes: This 39-year-old female with a longstanding history of diabetes her sugars have been running a little irregular at 6 PM today she noticed that her Accu-Chek was 460 she took 20 units of 70/30 insulin at that point in time subsequently a little bit later she went to stand up and got dizzy she is still experiencing little bit of dizziness and nausea. Accu-Chek was 304 at 10:39 PM. TRAVEL OUTSIDE OF THE [place] IN LAST 30 DAYS: No - HPI Onset: Just prior to arrival Onset/Duration: Sudden Quality of pain: No pain Severity: Moderate Associated Symptoms: None - Related Data Allergies/Adverse Reactions: levofloxacin [From Levaquin] Allergy (Verified 03/20/20 22:36) Past Medical History - General Information source: Patient - Social History Cigarette use (# per day): Yes Endocrine Medical History: Reports: Hx Diabetes Mellitus Type 1 Renal/ Medical History: Denies: Hx Peritoneal Dialysis GI Medical History: Reports: Hx Gastroesophageal Reflux Disease Psychiatric Medical History: Reports: Hx Bipolar Disorder, Hx Depression Past Surgical History: Reports: Hx Section, Hx Cholecystectomy, Hx Orthopedic Surgery - right wrist, left wrist - Immunizations Hx Diphtheria, Pertussis, Tetanus Vaccination: Yes Physical Exam - Vital signs Vitals: Temp Pulse Resp BP Pulse Ox 99.0 F 86 20 103/62 94 03/20/20 22:28 03/20/20 22:28 03/20/20 22:28 03/20/20 22:28 03/20/20 22:28 Course - Vital Signs Vital signs: Temp Pulse Resp BP Pulse Ox 99.0 F 86 20 103/62 94 03/20/20 22:28 03/20/20 22:28 03/20/20 22:28 03/20/20 22:28 03/20/20 22:28
[2020-03-21 00:03] LABS: ABSOLUTE BASOPHILS # (AUTO) 0.1 10^3/uL (0.0-0.2); ABSOLUTE EOSINOPHILS # (AUTO) 0.2 10^3/uL (0.0-0.6); ABSOLUTE LYMPHOCYTES (AUTO) 0.8 10^3/uL (0.5-4.7); ABSOLUTE MONOCYTES (AUTO) 0.4 10^3/uL (0.1-1.4); ABSOLUTE NEUT (AUTO) 11.7 10^3/uL (1.7-8.2); BASOPHILS % (AUTO) 0.6 % (0-2); EOSINOPHILS % (AUTO) 1.9 % (0-6); HEMATOCRIT 40.5 % (36.0-47.0); HEMOGLOBIN 13.8 g/dL (12.0-15.5); LYMPHOCYTES % (AUTO) 5.9 % (13-45); MEAN CORPUSCULAR HEMOGLOBIN 29.7 pg (27.0-33.4); MEAN CORPUSCULAR HGB CONC 34.2 g/dL (32.0-36.0); MEAN CORPUSCULAR VOLUME 87 fl (80-97); MONOCYTES % (AUTO) 2.7 % (3-13); PLATELET COUNT 231 10^3/uL (150-450); RED BLOOD COUNT 4.65 10^6/uL (3.72-5.28); SEGMENTED NEUTROPHILS % (AUTO) 88.9 % (42-78); TOTAL CELLS COUNTED % (AUTO) 100 %; WHITE BLOOD COUNT 13.2 10^3/uL (4.0-10.5)
[2020-03-21 00:07] LABS: ALBUMIN 4.3 g/dL (3.5-5.0); ALKALINE PHOSPHATASE 100 U/L (38-126); ANION GAP 10 (5-19); ASPARTATE AMINO TRANSFERASE 17 U/L (14-36); BILIRUBIN,DIRECT 0.1 mg/dL (0.0-0.4); BILIRUBIN,TOTAL 0.5 mg/dL (0.2-1.3); BLOOD UREA NITROGEN 29 mg/dL (7-20); CALCIUM 11.2 mg/dL (8.4-10.2); CARBON DIOXIDE 25 mmol/L (22-30); CHLORIDE 96 mmol/L (98-107); GLUCOSE 275 mg/dL (75-110); POTASSIUM 4.1 mmol/L (3.6-5.0); TOTAL PROTEIN 7.8 g/dL (6.3-8.2)
[2020-03-21] MEDS ORDERED: NORMAL SALINE 1000 ML 1,000 ML IV ONE (03:51)
[2020-03-21 04:22] LABS: APPEARANCE,URINE SLIGHTLY-CLOUDY; BILIRUBIN,URINE NEGATIVE (NEGATIVE); COLOR,URINE YELLOW; GLUCOSE, URINE >=500 mg/dL (NEGATIVE); KETONES,URINE TRACE mg/dL (NEGATIVE); LEUKOCYTE ESTERASE,URINE NEGATIVE (NEGATIVE); NITRITE,URINE NEGATIVE (NEGATIVE); PROTEIN,URINE 30 mg/dL (NEGATIVE); URINE SPECIFIC GRAVITY 1.023; UROBILINOGEN,URINE NEGATIVE mg/dL (<2.0)
--- NOTE | 2020-03-21 05:40 | ER Document Report ---
ED General - General Chief Complaint: Dizziness Stated Complaint: DIZZINESS Time Seen by Provider: 03/20/20 22:38 Primary Care Provider: [facility] [Provider Group] - Follow up as needed [facility] [Provider Group] - Follow up as needed TRAVEL OUTSIDE OF THE [place] IN LAST 30 DAYS: No - HPI Notes: 39-year-old female history of type 1 diabetes presents with episode of lightheadedness/near syncope just prior to arrival. Patient says that she is a "brittle "diabetic and that her glucose control is dependent on having a very regular schedule and that recently she started a new job and has not been able to reliably adhere to that schedule precipitating recent glucose readings in the 600s. Patient came because she had an episode where she was standing and she felt lightheaded and generally weak like she was going to pass out. She has had many similar episodes in the past when she is severely hyperglycemic, because of her new job she needed to have medical clearance before she could return to work prompting her to present to the ED. Patient has otherwise felt well. Patient denies any recent fever, myalgia, cough, chest pain, shortness of breath, lower extremity edema, abdominal pain, vomiting/diarrhea, dysuria, urgency, frequency sick contacts - Related Data Allergies/Adverse Reactions: levofloxacin [From Levaquin] Allergy (Verified 03/20/20 22:36) Home Medications: INSULIN 70/30 Past Medical History - General Information source: Patient - Social History Smoking Status: Current Every Day Smoker Cigarette use (# per day): Yes Frequency of alcohol use: Occasional Drug Abuse: None Family History: Reviewed & Not Pertinent, DM, Hypertension Patient has homicidal ideation: No Endocrine Medical History: Reports: Hx Diabetes Mellitus Type 1 Renal/ Medical History: Denies: Hx Peritoneal Dialysis GI Medical History: Reports: Hx Gastroesophageal Reflux Disease Psychiatric Medical History: Reports: Hx Bipolar Disorder, Hx Depression Past Surgical History: Reports: Hx Section, Hx Cholecystectomy, Hx Orthopedic Surgery - right wrist, left wrist - Immunizations Hx Diphtheria, Pertussis, Tetanus Vaccination: Yes Hx Pneumococcal Vaccination: 11/10/15 Review of Systems - Review of Systems Notes: REVIEW OF SYSTEMS: CONSTITUTIONAL : Denies fever, chills, or sweats. EENT: Denies recent cold/sinus symptoms, denies throat pain CARDIOVASCULAR: Denies chest pain, [place] RESPIRATORY: Denies cough, denies shortness of breath. GASTROINTESTINAL: Denies abdominal pain, nausea/vomiting. GENITOURINARY: Denies difficulty urinating, painful urination. FEMALE GENITOURINARY: Denies abnormal vaginal bleeding, vaginal discharge. MUSCULOSKELETAL: Denies neck pain, back pain. SKIN: Denies rash or skin lesions. HEMATOLOGIC : Denies easy bruising or bleeding. LYMPHATIC: Denies swollen, enlarged glands. NEUROLOGICAL: Denies headache, denies change in gait. PSYCHIATRIC: Denies anxiety or stress or depression. Physical Exam - Vital signs Vitals: Temp Pulse Resp BP Pulse Ox 99.0 F 86 20 103/62 94 03/20/20 22:28 03/20/20 22:28 03/20/20 22:28 03/20/20 22:28 03/20/20 22:28 - Notes Notes: PHYSICAL EXAMINATION: GENERAL: Well-appearing, well-nourished and in no acute distress. HEAD: Atraumatic, normocephalic. EYES: Pupils equal round and appropriate constriction, sclera anicteric, conjunctiva are normal. ENT: nares patent, dry mucous membranes. NECK: Normal range of motion, supple without lymphadenopathy LUNGS: Breath sounds clear to auscultation bilaterally and equal. No wheezes rales or rhonchi. HEART: Regular rate and rhythm without murmurs ABDOMEN: Soft, nontender, no guarding, no masses, no CVAT EXTREMITIES: Normal range of motion, no pitting or edema. No cyanosis. NEUROLOGICAL: Awake, alert, conversing appropriately, moves all extremities spontaneously. PSYCH: Normal mood, normal affect. SKIN: Warm, Dry, normal turgor, no rashes or lesions noted. Course - Re-evaluation Re-evalutation: 03/21/20 05:37 Lightheadedness without associated symptoms preceded by many days of extremely high glucose readings. Mild leukocytosis on labs but had thorough discussion with patient and patient has no symptoms of any infections and patient has logical reason why her blood sugar has been so high in recent days. Patient has not been to primary doctor in 15 years, gets her insulin [id number] at [facility]. I spoke to patient about her calcium being high in the ED and how this could be a sign of many diseases very dangerous and could be fatal including cancers and kidney disease. Spoke to patient about importance of following up with a primary doctor and patient agreed that she would. EKG with some equivocal T wave flattening in anterior leads likely secondary to lead placement, patient has no ACS symptoms and patient feels completely well now, troponin normal greater than 6 hours after near syncope episode. I gave patient extensive return to ED precautions which she demonstrated understanding of. Gave copy of all of her lab results so she can bring them to follow-up with her primary doctor. - Vital Signs Vital signs: Temp Pulse Resp BP Pulse Ox 98.1 F 69 18 113/63 99 03/21/20 06:03 03/21/20 06:03 03/21/20 06:03 03/21/20 06:03 03/21/20 06:03 - Laboratory Result Diagrams: 03/20/20 23:46 03/20/20 23:46 Laboratory results interpreted by me: 03/20/20 03/20/20 03/20/20 22:39 23:46 23:46 WBC 13.2 H Lymph % (Auto) 5.9 L [place] % (Auto) 2.7 L Absolute Neuts (auto) 11.7 H Seg Neutrophils % 88.9 H Sodium 131.0 L Chloride 96 L BUN 29 H Glucose 275 H POC Glucose 304 H Calcium 11.2 H Urine Protein Urine Glucose (UA) Urine Ketones 03/21/20 03/21/20 03:47 03:56 WBC Lymph % (Auto) [place] % (Auto) Absolute Neuts (auto) Seg Neutrophils % Sodium Chloride BUN Glucose POC Glucose 213 H Calcium Urine Protein 30 H Urine Glucose (UA) >=500 H Urine Ketones TRACE H - EKG Interpretation by Me Additional EKG results interpreted by me: 03/21/20 06:44 Heart rate 67, normal sinus rhythm, no significant ST elevations or depressions, equivocal T wave abnormalities in anterior leads, QTc 473 Discharge - Discharge Clinical Impression: Near syncope, Hyperglycemia, Hypercalcemia Condition: Stable Disposition: HOME, SELF-CARE Additional Instructions: Hyperglycemia (High Blood Sugar) You have an abnormally high blood sugar. Not all high blood sugar requires long-term treatment. High blood sugar can be due to medications, , or the stress of illness. (These cases are "borderline diabetes.") If the doctor feels your high blood sugar might resolve with time, you may not require treatment now. You will be scheduled for further evaluation. It's very important that you follow through, to see if the blood sugar returns to normal levels. Uncontrolled high blood sugar leads to early heart disease, strokes, nerve damage, eye damage, and kidney damage. Call the physician if there is faintness, excess sleepiness, or very rapid breathing. You had a high calcium on your lab work today. Dangerous diseases such as kidne y disease and cancers can cause high calcium. It is extremely important that you follow this up with a primary doctor. You some slight EKG abnormalities, you should also follow these up with your primary doctor. return to ED immediately if you have chest pain, trouble breathing, fever 100.4 or higher, or any other worsening or alarming symptoms. Forms: Return to Work Referrals: [facility] [Provider Group] - Follow up as needed [facility] [Provider Group] - Follow up as needed
[2020-03-21 06:23] VITALS: BP 113/63
--- NOTE | 2020-03-21 19:00 | EKG REPORT ---
SEVERITY:- BORDERLINE ECG - SINUS RHYTHM BORDERLINE T ABNORMALITIES, ANTERIOR LEADS : Confirmed by: Linda Asencio MD 21-Mar-2020 18:59:12
== END 2020-03-21 06:15 | disposition home or self-care (01) ==
LOC: ER 22:09
DX: R55 Syncope and collapse (principal); E10.65 Type 1 diabetes mellitus with hyperglycemia; E83.52 Hypercalcemia; R42 Dizziness and giddiness; D72.829 Elevated white blood cell count, unspecified; F17.210 Nicotine dependence, cigarettes, uncomplicated; Z79.4 Long term (current) use of insulin; Z88.1 Allergy status to other antibiotic agents
CPT/HCPCS: 93005; 99284; 96360; 36415; 82962; 85025; 81025; 80053; 81001; 84484; 93010; J7030

== ENCOUNTER 2020-06-25 13:04 | Emergency (ER) | payer SELFPAY ==
[2020-06-25] MEDS ORDERED: AMOXICILLIN TR/POT CLAVULANATE 500-125 MG TAB PO ONE (14:02)
--- NOTE | 2020-06-25 14:08 | ER Document Report ---
ED ENT - General Chief Complaint: Sinus Pain Stated Complaint: EYE,JAW PAIN Time Seen by Provider: 06/25/20 13:59 Primary Care Provider: [facility] [Provider Group] - Follow up as needed [facility] [Provider Group] - Follow up as needed Mode of Arrival: Ambulatory Information source: Patient Notes: 39-year-old female presented to ED for right sinus pain now radiating to the ear and jaw. She states this started on the and is gotten progressively worse. 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 She does have a little bit of cough but she has a whole lot of postnasal drip at this time. Lungs are clear at this time. TRAVEL OUTSIDE OF THE [place] IN LAST 30 DAYS: No - HPI Onset: Last week Onset/Duration: Gradual Quality of pain: Sharp Severity: Moderate Pain Level: 3 Associated symptoms: Congestion, Fever, Sinus pain, Sinus drainage Similar symptoms previously: Yes Recently seen / treated by doctor: Yes - Related Data Allergies/Adverse Reactions: levofloxacin [From Levaquin] Allergy (Verified 03/20/20 22:36) Past Medical History - General Information source: Patient - Social History Smoking Status: Former Smoker Frequency of alcohol use: None Drug Abuse: None Family History: Reviewed & Not Pertinent, DM, Hypertension Endocrine Medical History: Reports: Hx Diabetes Mellitus Type 1 Renal/ Medical History: Denies: Hx Peritoneal Dialysis GI Medical History: Reports: Hx Gastroesophageal Reflux Disease Psychiatric Medical History: Reports: Hx Bipolar Disorder, Hx Depression Past Surgical History: Reports: Hx Section, Hx Cholecystectomy, Hx Orthopedic Surgery - right wrist, left wrist - Immunizations Immunizations up to date: Yes Hx Diphtheria, Pertussis, Tetanus Vaccination: Yes Hx Pneumococcal Vaccination: 11/10/15 Review of Systems - Review of Systems Constitutional: No symptoms reported EENT: Sinus pressure, Sinus discharge, Other - Facial pain Cardiovascular: No symptoms reported Respiratory: No symptoms reported Gastrointestinal: No symptoms reported Genitourinary: No symptoms reported Female Genitourinary: No symptoms reported Musculoskeletal: No symptoms reported Skin: No symptoms reported Hematologic/Lymphatic: No symptoms reported Neurological/Psychological: No symptoms reported -: Yes All other systems reviewed and negative Physical Exam - Vital signs Vitals: Temp Pulse Resp BP Pulse Ox 98.4 F 83 18 129/73 H 98 06/25/20 13:16 06/25/20 13:16 06/25/20 13:16 06/25/20 13:16 06/25/20 13:16 Interpretation: Normal - General General appearance: Appears well, Alert - HEENT Head: Normocephalic, Atraumatic Eyes: Normal Pupils: PERRL Ears: Normal External canal: Normal Tympanic membrane: Normal Sinus: Frontal, Mastoid, Maxillary, Swelling, Tenderness. No: Redness Nasal: Purulent discharge, Swelling Mouth/Lips: Normal Mucous membranes: Normal Pharynx: Post nasal drainage. No: Erythema, Exudate, Tonsillar hypertrophy Neck: Normal - Respiratory Respiratory status: No respiratory distress Chest status: Nontender Breath sounds: Nonproductive cough. No: Rales, Rhonchi, Stridor, Wheezing Chest palpation: Normal - Cardiovascular Rhythm: Regular Heart sounds: Normal auscultation Murmur: No - Abdominal Inspection: Normal Distension: No distension Bowel sounds: Normal Tenderness: Nontender Organomegaly: No organomegaly - Back Back: Normal, Nontender - Extremities General upper extremity: Normal inspection, Nontender, Normal color, Normal ROM, Normal temperature General lower extremity: Normal inspection, Nontender, Normal color, Normal ROM, Normal temperature, Normal weight bearing. No: Simeon's sign - Neurological Neuro grossly intact: Yes Cognition: Normal Orientation: AAOx4 Lamar Coma Scale Eye Opening: Spontaneous Mary Coma Scale Verbal: Oriented Mary Coma Scale Motor: Obeys Commands Lamar Coma Scale Total: 15 Speech: Normal Motor strength normal: LUE, RUE, LLE, RLE Sensory: Normal - Psychological Associated symptoms: Normal affect, Normal mood - Skin Skin Temperature: Warm Skin Moisture: Dry Skin Color: Normal Course - Re-evaluation Re-evalutation: 06/25/20 22:27 Patient was treated with Augmentin for her sinus infection. She has been sick for more than a week. Patient was instructed to please follow-up with her primary care and/or ENT for any continued symptoms. Patient verbalized understanding and agree with treatment plan and patient was discharged home. - Vital Signs Vital signs: Temp Pulse Resp BP Pulse Ox 98 F 81 18 121/71 97 06/25/20 14:20 06/25/20 14:20 06/25/20 14:20 06/25/20 14:20 06/25/20 14:20 - Laboratory Laboratory results interpreted by me: 06/25/20 14:08 POC Glucose 327 H Discharge - Discharge Clinical Impression: Sinusitis Qualifiers: Sinusitis location: unspecified location Chronicity: acute Recurrence: non- recurrent Qualified Code(s): J01.90 - Acute sinusitis, unspecified Condition: Stable Disposition: HOME, SELF-CARE Additional Instructions: Sinusitis You have sinusitis, an infection of the sinus cavities of the face. The sinuses are air-filled chambers which open into the inside of the nose. Bacteria and pus fill a sinus, causing pain, drainage, and fever. Sinusitis is treated with antibiotics. Often, expectorants (to thin the sinus mucous) or decongestants (to reduce swelling) are prescribed as well. Healing requires seven to 10 days. Avoid chemical fumes, pollens, dusts, and smoke (especially cigarette smoke). Keep the air humidified in your bedroom and work area and take plenty of liquids by mouth. This condition can be serious if the infection spreads. If your symptoms worsen, or if you develop severe headache, high fever, stiff neck, or a rash, you must call the doctor or return for re-evaluation. Augmentin Augmentin is a mixture of amoxicillin and clavulanate. Amoxicillin is a member of the penicillin family. It covers the germs likely to cause ear, bronchial, and urinary infections better than plain penicillin. The addition of clavulanate allows it to cover staph infections of the skin, as well as resistant cases of ear and sinus infections. Your physician has chosen Augmentin for you because of the special nature of your situation. Augmentin is best taken with meals. Nausea after taking the medication is rare, but can occur. Diarrhea can occur, particularly in small children. Vagi nal yeast infections, and oral thrush in infants are also common. Contact your physician if these problems occur. Allergy to penicillins is common. If you have had an allergic reaction to any drug of the penicillin family, you should never take any other penicillin. Notify your doctor at once if you develop hives, shortness of breath, swelling, or faintness. Acetaminophen Acetaminophen may be taken for pain relief or fever control. It's much safer than aspirin, offering a wider range of "safe" dosages. It is safe during . Some brand names are Tylenol, Panadol, Datril, Anacin 3, Tempra, and Liquiprin. Acetaminophen can be repeated every four hours. The following are maximum recommended dosages: WEIGHT Dose Drops Elixir Chewable(80mg) (LBS.) drprs=droppers tsp=teaspoon 6 40 mg .4 ml (1/2) 6-11 80 mg .8 ml (full) 1/2 tsp 1 tab 12-16 120 mg 1 1/2 drprs 3/4 tsp 1 1/2 tabs 17-23 160 mg 2 drprs 1 tsp 2 tabs 24-30 240 mg 3 drprs 1 1/2 tsp 3 tabs 30-35 320 mg 2 tsp 4 tabs 36-41 360 mg 2 1/4 tsp 4 1/2 tabs 42-47 400 mg 2 1/2 tsp 5 tabs 48-53 480 mg 3 tsp 6 tabs 54-59 520 mg 3 1/4 tsp 6 1/2 tabs 60-64 560 mg 3 1/2 tsp 7 tabs 65-70 600 mg 3 3/4 tsp 7 1/2 tabs 71-76 640 mg 4 tsp 8 tabs 77-82 720 mg 4 1/2 tsp 9 tabs 83-88 800 mg 5 tsp 10 tabs >89 pounds or adults 650 mg to 900 mg Acetaminophen can be repeated every four hours. Maximum daily dose not to exceed 4000 mg. These maximum recommended dosages are slightly higher than the dosages written on the product container, but these dosages are very safe and well below the toxic dosage for acetaminophen. Ibuprofen Ibuprofen is an excellent, safe drug for pain control. In addition, it has potent antiinflammatory effects which are beneficial, especially in the treatment of injuries, arthritis, or tendonitis. It's best to take ibuprofen with food. Persons with ulcer disease or allergy to aspirin should notify their physician of this before taking ibuprofen. Take the medication exactly as prescribed. Don't take additional doses unless instructed to do so by your doctor. If you develop wheezing, shortness of breath, hives, faintness, stomach pain, vomiting, or dark black stools, return for re-evaluation at once. FOLLOW-UP CARE: If you have been referred to a physician for follow-up care, call the physicians office for an appointment as you were instructed or within the next two days. If you experience worsening or a significant change in your symptoms, notify the physician immediately or return to the Emergency Department at any time for re-evaluation. Prescriptions: Amoxicillin/Potassium Clav [Augmentin 875-125 Tablet] 1 tab PO Q12 #20 tablet Forms: Elevated Blood Pressure, Return to Work Referrals: [facility] [Provider Group] - Follow up as needed [facility] [Provider Group] - Follow up as needed
[2020-06-25 14:21] VITALS: BP 121/71
== END 2020-06-25 14:20 | disposition home or self-care (01) ==
LOC: ER 13:04
DX: J34.89 Other specified disorders of nose and nasal sinuses (principal); E10.9 Type 1 diabetes mellitus without complications; Z90.49 Acquired absence of other specified parts of digestive tract
CPT/HCPCS: 82962; 99283